=== PATIENT | female | born 1940 | race Caucasian/White ===

== ENCOUNTER 2020-03-03 04:12 | Emergency (ER) | payer MEDICARE, SELFPAY ==
--- NOTE | ~2020-03-03 | XR_ITS ---
XR chest 1V portable DATE: 03/03/2020 04:56 INDICATION: Midline chest pain for 2 hours TECHNIQUE: Portable AP chest on 03/03/2020 at 0459 hours COMPARISON: 09/30/2018 PA and lateral chest FINDINGS: Heart size is within normal range. There is aortic arch calcification. No hilar or mediasti nal enlargement. No pulmonary infiltrate or consolidation, pleural effusion or pulmonary vascular congestion or pneumo thorax. Surgical clips, right upper quadrant, consistent with cholecystectomy. Old healed right rib fractures. Diffuse osteopenia. There is mild levoscoliosis and degenerative spurring of the thoracic spine. IMPRESSION: No active cardiopulmonary disease Aortic atherosclerosis Reviewed, dictated and finalized at location A. ASSEMBLER
[2020-03-03 04:17] VITALS: BP 148/84; PULSE 91; RESP 18; TEMP 36.2; O2SAT 99
--- NOTE | 2020-03-03 04:25 | ECG_ITS ---
Measurements Intervals [place] Rate: 77 P: DC: 0 QRS: -29 QRSD: 149 T: 96 QT: 387 QTc: 438 Interpretive Statements ATRIAL FIBRILLATION LEFT BUNDLE BRANCH BLOCK ABNORMAL ECG Electronically Signed On 03-03-2020 7:52:59 ALLOCATION ANALYST by Chapo Suarez D.O.
[2020-03-03 05:01] LABS: Basophils Percent Auto 0.5 % (0.2-1.2); Eosinophils Absolute Auto 0.3 K/mm3 (0-0.3); Eosinophils Percent Auto 3.4 % (0-4.4); Hematocrit 43.2 % (37.0-47.0); Hemoglobin 14.6 g/dL (12.0-15.0); Immature Granulocyte Absolute 0.04 K/mm3 (0.00-0.031); Immature Granulocyte Percent A 0.5 % (0-0.5); Lymphocytes Absolute Auto 1.68 K/mm3 (0.9-3.2); Lymphocytes Percent Auto 19.5 % (18.3-44.2); Mean Corpuscular HGB Conc 33.8 g/dl (32-36); Mean Corpuscular Volume 88.9 fl (80-100); Mean Platelet Volume 10.8 fl (7.4-10.4); Monocytes Absolute Auto 0.8 K/mm3 (0.1-0.6); Monocytes Percent Auto 8.8 % (2.6-8.5); Neutrophils Absolute Auto 5.8 K/mm3 (1.3-6.7); Neutrophils Percent Auto 67.3 % (45.5-73.1); Platelet Count Result 216 k/mm3 (150-375); Red Blood Count 4.86 M/mm3 (4.2-5.4); Red Cell Distribution Width 13.2 % (11.5-14.5); White Blood Count 8.6 K/mm3 (4.5-10.0)
[2020-03-03 05:13] LABS: INR 1.7; Prothrombin Time 20.6 Seconds (11.1-14.7)
[2020-03-03 05:15] LABS: Partial Thromboplastin Time 68.3 SECONDS (22.3-36.8)
[2020-03-03 05:16] LABS: Alanine Aminotransferase 16 U/L (4-35); Albumin Level 4.6 g/dL (3.5-5.1); Alkaline Phosphatase 67 U/L (38-126); Anion Gap 11 mmol/L (8-16); Aspartate Amino Transferase 27 U/L (14-36); Bilirubin,Total 0.7 mg/dL (0.2-1.3); Blood Urea Nitrogen 27 mg/dL (7-17); Calcium 10.5 mg/dL (8.4-10.2); Carbon Dioxide 34 mmol/L (22-30); Chloride 99 mmol/L (98-107); Estimated CRCL calculation 35 ml/min; Estimated Glomerular Filt Rate 60; Glucose 104 mg/dL (65-105); Lipase 195 U/L (23-300); Potassium 3.5 mmol/L (3.4-5.0); Sodium 144 mmol/L (137-145)
[2020-03-03 05:27] VITALS: BP 137/63; PULSE 68; RESP 17; O2SAT 96
[2020-03-03 05:28] LABS: Troponin I < 0.012 ng/mL (0.000-0.034)
--- NOTE | 2020-03-03 06:08 | ED.CHESTPAIN ---
HPI - Chest Pain General Chief Complaint: Chest Pain Stated Complaint: cp Time Seen by Provider: 03/03/20 04:33 History of Present Illness HPI narrative: Patient is a 79-year-old female presents the emergency department with chief complaint of chest pain. Patient states that this evening she was at home and started having an episode of midsternal chest discomfort. Patient states the pain was nonradiating reports felt little short of breath at that time denies diaphoresis denies radiation. Patient pain is not worsened with movement states that it gradually resolved on its own and is currently gone upon arrival to the emergency department. Patient states that she is not sure when her last stress test was. Patient reports she has history of atrial fibrillation and states that she felt like her heart was not beating any different than normal neither fast nor slow. Related Data Home Medications Medication Instructions Recorded Confirmed carvedilol 12.5 mg tablet 12.5 mg PO Q12H 09/09/19 09/09/19 furosemide 20 mg tablet 20 mg PO QAM 09/09/19 09/09/19 rivaroxaban 20 mg tablet 20 mg PO DAILY 09/09/19 09/09/19 sacubitril 24 mg-valsartan 26 mg 1 tablet PO BID 09/09/19 09/09/19 tablet gabapentin 03/03/20 Allergies Allergy/AdvReac Type Severity Reaction Status Date / Time No Known Allergies Allergy Verified 03/03/20 04:23 Review of Systems Review of Systems: Narrative: CONSTITUTIONAL: Denies fever, chills, or sweats. EYES: Denies visual changes, redness, or discharge. ENT: Denies rhinorrhea, congestion, sore throat, or otalgia. CARDIOVASCULAR: Denies chest pain, palpitations, or edema. RESPIRATORY: Denies cough or dyspnea. GASTROINTESTINAL: Denies abdominal pain, nausea, vomiting, or diarrhea. GENITOURINARY: Denies dysuria or hematuria. SKIN: Denies rash or itching. MUSCULOSKELETAL: Denies back pain, joint pain, or myalgia. NEUROLOGIC: Denies headache, numbness, or weakness. PSYCHIATRIC: Denies anxiety or depression. A 10 system review of systems was completed on the patient and is negative except for what is stated in the HPI. Nursing and ancillary documentation was reviewed. [facility] Family History Family History Father Hypertension Family history of transient ischemic attacks Mother Hypertension Family history of cardiovascular disease Carcinoma of colon Social History Social History Smoking status: Never smoker Second hand tobacco smoke exposure: No Alcohol intake: current Comments History of atrial fibrillation Exam Narrative: Exam Narrative: GENERAL: Well-appearing, well-nourished, and in no acute distress. HEAD: Normocephalic, atraumatic. EYES: PERRLA and EOMI. ENT: Nares clear, no rhinorrhea or epistaxis. Mucous membranes moist. NECK: Supple. CHEST: Clear to auscultation. No respiratory distress. HEART: irregular Regular rate and rhythm. No murmur heard. Normal peripheral pulses. ABDOMEN: Soft, nontender, nondistended, normal active bowel sounds. EXTREMITIES: Normal range of motion. No edema. SKIN: Warm, dry, no rash. NEURO: No focal deficits. Alert and oriented x3. PSYCH: Normal mood and affect. Course Course Emergency Course: EKG shows atrial fibrillation with a left bundle branch block Initial troponin was negative a 3-hour troponin has been ordered I will be signing out to the day provider as of this time. Vital Signs Vital signs: Vital Signs Temperature 36.2 C L 03/03/20 04:17 Pulse Rate 91 03/03/20 04:17 Respiratory Rate 18 03/03/20 04:17 Blood Pressure 148/84 H 03/03/20 04:17 Pulse Oximetry 99 03/03/20 04:17 Temperature 36.2 C L 03/03/20 04:17 Pulse Rate 66 03/03/20 06:34 Respiratory Rate 18 03/03/20 06:34 Blood Pressure 128/69 03/03/20 06:34 Pulse Oximetry 98 03/03/20 06:34 MDM - Chest Pain Lab Data Result di
[2020-03-03 06:34] VITALS: BP 128/69; PULSE 66; RESP 18; O2SAT 98
[2020-03-03 07:14] VITALS: PULSE 61
[2020-03-03 07:16] VITALS: BP 109/61; PULSE 61; RESP 16; O2SAT 96
[2020-03-03 08:39] LABS: Troponin I < 0.012 ng/mL (0.000-0.034)
[2020-03-03 09:11] VITALS: BP 131/70; PULSE 68; RESP 18; O2SAT 98
== END 2020-03-03 09:12 | disposition home or self-care (01) ==
PROVIDERS: Emergency Medicine; Emergency Provider Emergency Medicine; PCP Family Medicine
DX: R07.2 Precordial pain (principal); I48.91 Unspecified atrial fibrillation; Z79.01 Long term (current) use of anticoagulants
CPT/HCPCS: 36415; 71045; 80053; 83690; 84484; 85025; 85610; 85730; 93005; 99284

== ENCOUNTER 2020-08-03 09:01 | Outpatient (CLI) | payer MEDICARE, SELFPAY ==
--- NOTE | ~2020-08-03 | MM_ITS ---
EXAMINATION: MM screening [facility] BI w jacky HISTORY: Screening mammogram TECHNIQUE: Craniocaudal and mediolateral oblique 3-D tomosynthesis images were obtained and synthetic 2-D images were generated. CAD analysis was submitted and interpreted. COMPARISON: 01/25/2019 stereotactic right breast biopsy and post biopsy right mammogram; nonprolifera tive fibrocystic changes consisting of fibrosis, chronic mastoiditis and microcalcifications were rep orted; no evidence of neoplasm 01/19/2019 diagnostic right digital mammogram 01/07/2019, 10/22/2017, 08/20/2016, 08/15/2015 bilateral digital screening mammogram examinations BREAST PARENCHYMAL COMPOSITION: There are scattered areas of fibroglandular density. FINDINGS: Bilateral breast calcifications, more numerous on the right. Right biopsy marker. New rounded circumscribed approximately 7 mm mass in the upper inner right breast. Diagnostic right m ammogram and right breast ultrasound examination are recommended. Otherwise there is no evidence of suspicious mass, calcification, or architectural distortion to sugg est malignancy in either breast. There has been no other suspicious interval change. IMPRESSION: 1. New 7 mm right upper inner breast mass. 2. Diagnostic right mammogram and right breast ultrasound are recommended. BI-RADS Category 0: Incomplete: Needs additional imaging evaluation. Reviewed, dictated and finalized at location A.
== END 2020-08-03 09:02 | disposition home or self-care (01) ==
LOC: ANHIMG 09:04
PROVIDERS: PCP Family Medicine; Visit Provider Physician Assistant
DX: Z12.31 Encounter for screening mammogram for malignant neoplasm of breast (principal); R92.8 Other abnormal and inconclusive findings on diagnostic imaging of breast
CPT/HCPCS: 77063; 77067

== ENCOUNTER 2020-08-21 12:57 | Outpatient (CLI) | payer MEDICARE, SELFPAY ==
--- NOTE | ~2020-08-21 | MMUS_ITS ---
EXAMINATION: MM diagnostic mammo unilat RT, US breast RT limited HISTORY: Follow-up right breast mass TECHNIQUE: Additional 3-D tomosynthesis images of the right breast were performed and synthetic 2-D i mages were generated. CAD analysis was submitted and interpreted. High resolution Limited right breas t ultrasound was performed. COMPARISON: Comparison to multiple prior studies sequentially, with oldest reviewed study dated 01/04. BREAST PARENCHYMAL COMPOSITION: Breast composed of scattered areas of fibroglandular density. FINDINGS: MAMMOGRAPHIC FINDINGS: There is an 8 mm mass in the upper inner quadrant of the right breast, middle third. There are benign right breast calcifications. No architectural distortion is identified. ULTRASOUND: Limited right breast ultrasound: At 2:00, 3 cm from the nipple, there is a 6 mm cyst which exhibits p osterior shadowing, possibly due to layering milk of calcium. No suspicious masses are identified to suggest malignancy. IMPRESSION: 1. No evidence for malignancy in the right breast. Benign findings. 2. Routine yearly screening mammogram and regular clinical breast examination are recommended. BI-RADS Category 2: Benign finding(s). Reviewed, dictated and finalized at location A. IMPRESSION: 1. No evidence for malignancy in the right breast. Benign findings. 2. Routine yearly screening mammogram and regular clinical breast examination a re recommended. BI-RADS Category 2: Benign finding(s).
== END 2020-08-21 12:58 | disposition home or self-care (01) ==
PROVIDERS: PCP Family Medicine; Visit Provider Physician Assistant
DX: N63.12 Unspecified lump in the right breast, upper inner quadrant (principal)
CPT/HCPCS: 76642; 77065

== ENCOUNTER 2021-09-17 08:10 | Outpatient (CLI) | payer MEDICARE, SELFPAY ==
--- NOTE | ~2021-09-17 | MM_ITS ---
EXAMINATION: MM screening [facility] BI w jacky HISTORY: Screening TECHNIQUE: Craniocaudal and mediolateral oblique 3-D tomosynthesis images were obtained and synthetic 2-D images were generated. CAD analysis was submitted and interpreted. COMPARISON: Comparison to multiple prior studies sequentially, with oldest reviewed study dated 01/04. BREAST PARENCHYMAL COMPOSITION: Breast composed of scattered areas of fibroglandular density FINDINGS: Slightly decreased size of the mass in the upper inner quadrant of the right breast compare d with prior study. There are in numerable right breast calcifications which are unchanged. There is no evidence of suspicious mass, calcification, or architectural distortion to suggest malignancy in e ither breast. There has been no suspicious interval change. IMPRESSION: 1. No mammographic evidence of malignancy. 2. Recommend routine screening mammography in one year. BI-RADS Category 2: Benign finding(s). Reviewed, dictated and finalized at location A.
== END 2021-09-17 08:11 | disposition home or self-care (01) ==
PROVIDERS: PCP Family Medicine; Visit Provider Family Medicine
DX: Z12.31 Encounter for screening mammogram for malignant neoplasm of breast (principal)
CPT/HCPCS: 77063; 77067

== ENCOUNTER 2021-10-23 07:40 | Outpatient (CLI) | payer MEDICARE, SELFPAY ==
--- NOTE | ~2021-10-23 | DEXA_ITS ---
Bone Density Report Name: DAMON NUGENT Age: 81 Sex: Female Ethnicity: White Date of : 1940 Indication: postmenopausal; screening for osteoporosis; height loss; hysterectomy; Referring Provider: MADELIN SANDERS Study: Bone densitometry was performed. Exam Date: October 23, 2021 Accession number: [id number] Bone Density: Region BMD T-score Z-score Classification AP Spine(L1, L2) 1.295 2.9 5.4 Normal Femoral Neck (Left) 0.826 -0.2 2.2 Normal Total Hip (Left) 1.099 1.3 3.4 Normal Femoral Neck (Right) 0.837 -0.1 2.3 Normal Total Hip (Right) 1.054 0.9 3.1 Normal Total Hip Mean 1.076 1.1 3.3 Normal World Health Organization criteria for BMD impression classify patients as: Normal (T-score at or above -1.0), Osteopenia (T-score between -1.0 and -2.5), or Osteoporosis (T-score at or below -2.5). 10-year Fracture Risk: FRAX not reported because: All T-scores for Spine Total, Hip Total, Femoral Neck at or above -1.0 Clinical Information Provided by Patient: Has used the following medications: Vitamin D Has the following medical conditions: Hysterectomy Patient maximum height was 64.5 Menopause Age: 50 No regular weight bearing exercise Drinks caffeinated beverages Onset of menses at age 13 Number of children 2 Impression: The patient has normal bone mass. Discussion: LOW RISK OF FRACTURE; BONE DENSITY IS WELL ABOVE THE MINIMUM DESIRABLE LEVEL AND ABOVE AVERAGE FOR AGE AND SEX AT ALL SKELETAL SITES TESTED. This person's bone density is above expected limits for age and sex. This is rarely clinically significant, but should be pursued if there are significant musculoskeletal complaints. The patient should follow a healthful lifestyle (good nutrition with adequate calcium and vitamin D, and appropriate weight-bearing exercise). Follow-Up: Consider repeating this study in 5 years or sooner if there is some new clinical indication. Reported by: SAMRA on 10/23/2021 7:58:00 AM. Reviewed, dictated and finalized at location ACt LEAVITT
== END 2021-10-23 07:41 | disposition home or self-care (01) ==
LOC: ANHIMG 07:42
PROVIDERS: PCP Family Medicine; Visit Provider Family Medicine
DX: Z78.0 Asymptomatic menopausal state (principal)
CPT/HCPCS: 77080

== ENCOUNTER 2021-11-29 22:38 | Emergency (ER) | payer MEDICARE, SELFPAY ==
--- NOTE | ~2021-11-29 | CT_ITS ---
EXAMINATION: CT abdomen pelvis w con INDICATION: Left lower quadrant pain TECHNIQUE: Computed tomographic images of the abdomen and pelvis were obtained after the administrati on of 100 cc of Omnipaque 350 intravenous contrast. The dose-length product (DLP) was 326.15 mGy-cm. Automated exposure control and iterative reconstruction technique were employed. COMPARISON: None available FINDINGS: Minimal dependent atelectasis is present in the lung bases. The heart size is normal. There is a small sliding hiatal hernia. The liver is diffusely low in attenuation when compared with the s pleen, consistent with hepatic steatosis. The gallbladder is surgically absent. There is mild enlarge ment of the common bile duct and central intrahepatic ducts which is likely due to post cholecystecto my state. Punctate calcifications in an otherwise normal spleen likely represent healed granulomatous disease. The pancreas and adrenal glands are normal. Cysts of the kidneys measure up to 11 mm on the right. No pathologically enlarged abdominal or pelvic lymph nodes are identified. There is no free i ntraperitoneal gas or evidence of bowel obstruction. There is colonic diverticulosis. There is wall t hickening of the distal sigmoid colon with edematous stranding of the adjacent perisigmoid fat. There is a small amount of ascites in the pelvis without identifiable abscess. There is severe lumbar spon dylosis. IMPRESSION: 1. Acute, uncomplicated sigmoid diverticulitis. Reviewed, dictated and finalized at location A.
[2021-11-29 23:08] VITALS: BP 141/70; PULSE 72; RESP 20; TEMP 37; O2SAT 98
[2021-11-30 00:44] VITALS: BP 129/55; PULSE 82; O2SAT 97
[2021-11-30 00:51] LABS: Appearance Urine Clear (Clear); Bilirubin Urine Negative (Negative); Color Urine Yellow (Yellow); Glucose Urine UA Negative (Negative); Ketones Urine Trace mg/dL (Negative); Leukocyte Esterase Ur 2+ LEU/UL (Negative); Nitrate Urine Negative (Negative); Protein Urine 1+ mg/dL (Negative); Urobilinogen Urine 0.2 mg/dL (<2.0); pH Urine 5.5 (5.0-9.0)
[2021-11-30 01:01] LABS: Bacteria Urine Trace /hpf; Mucus Urine Rare /lpf; Squamous Epithelial Cell Urine Rare /hpf (Few); WBC Urine 51-75 /hpf
[2021-11-30 01:05] LABS: Add Urine Microscopic? YES; Blood Urine Trace (Negative)
[2021-11-30 03:23] LABS: Basophils Percent Auto 0.2 % (0.2-1.2); Eosinophils Absolute Auto 0.1 K/mm3 (0-0.3); Eosinophils Percent Auto 0.7 % (0-4.4); Hematocrit 35.9 % (37.0-47.0); Hemoglobin 12.2 g/dL (12.0-15.0); Immature Granulocyte Absolute 0.05 K/mm3 (0.00-0.031); Immature Granulocyte Percent A 0.4 % (0-0.5); Lymphocytes Absolute Auto 1.17 K/mm3 (0.9-3.2); Lymphocytes Percent Auto 9.5 % (18.3-44.2); Mean Corpuscular Hemoglobin 31.3 pg (26-34); Mean Corpuscular Volume 92.1 fl (80-100); Mean Platelet Volume 10.6 fl (7.4-10.4); Monocytes Absolute Auto 0.9 K/mm3 (0.1-0.6); Monocytes Percent Auto 7.2 % (2.6-8.5); Neutrophils Absolute Auto 10.1 K/mm3 (1.3-6.7); Platelet Count Result 191 k/mm3 (150-375); Red Cell Distribution Width 13.2 % (11.5-14.5); White Blood Count 12.3 K/mm3 (4.5-10.0)
[2021-11-30 03:30] VITALS: BP 128/72; PULSE 86; RESP 18; O2SAT 98
[2021-11-30 03:34] LABS: Alanine Aminotransferase 19 U/L (6-35); Albumin Level 4.5 g/dL (3.5-5.1); Alkaline Phosphatase 53 U/L (38-126); Anion Gap 9 mmol/L (8-16); Aspartate Amino Transferase 25 U/L (14-36); Bilirubin,Total 0.7 mg/dL (0.2-1.3); Blood Urea Nitrogen 23 mg/dL (7-17); Calcium 9.2 mg/dL (8.4-10.2); Carbon Dioxide 26 mmol/L (22-30); Chloride 100 mmol/L (98-107); Estimated CRCL calculation 28 ml/min; Estimated Glomerular Filt Rate 48; Glucose 139 mg/dL (65-110); Lipase 108 U/L (23-300); Potassium 3.5 mmol/L (3.4-5.0); Sodium 135 mmol/L (137-145)
[2021-11-30] MEDS: ONDANSETRON INJ 4 MG/2 ML VIAL IV PUSH (04:58)
[2021-11-30] MEDS: SODIUM CHLORIDE 0.9% IV 1,000 ML 999 ML IV CONT (04:58)
[2021-11-30] MEDS: MORPHINE SULFATE (*CRX) 4 MG/ML INJ IV PUSH (04:59)
--- NOTE | 2021-11-30 05:56 | ED.GENADULT ---
HPI - General Adult General Chief complaint: Abdominal Pain Stated complaint: left flank pain Time Seen by Provider: 11/30/21 04:08 History of Present Illness HPI narrative: Patient is a 31-year-old female who presents the emergency department with chief complaint of left lower quadrant abdominal pain. Patient reports that pain started around 7 PM reports its a sharp type pain reports is worse with movement and improved with rest. The patient denies fever reports several bit of nausea denies vomiting or diarrhea. Related Data Home Medications Medication Instructions Recorded Confirmed furosemide 20 mg tablet 20 mg PO QAM 09/09/19 06/24/21 rivaroxaban 20 mg tablet (Xarelto) 20 mg PO DAILY 09/09/19 06/24/21 sacubitril 24 mg-valsartan 26 mg 1 tablet PO BID 09/09/19 06/24/21 tablet (Entresto) gabapentin 300 mg capsule 300 mg PO TID 12/24/20 06/24/21 Allergies Allergy/AdvReac Type Severity Reaction Status Date / Time No Known Allergies Allergy Verified 11/29/21 23:10 Review of Systems Review of Systems: A 10 system review of systems was completed on the patient and is negative except for what is stated in the HPI. Nursing and ancillary documentation was reviewed. 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 LBBB (left bundle branch block) Memory deficit Mitral valve regurgitation Paroxysmal A-fib Uterine fibroid Surgical History Surgical History History of cholecystectomy History of ear surgery History of tympanoplasty of left ear Family History Family History Father Hypertension Family history of transient ischemic attacks Mother Hypertension Family history of cardiovascular disease Carcinoma of colon Social History Social History Smoking status: Never smoker Second hand tobacco smoke exposure: No Alcohol intake: current Substance use: never Substance use type: does not use Gender identity (if verbalized by the patient): Female Exam Narrative: GENERAL: Well-appearing, well-nourished, and in no acute distress. HEAD: Normocephalic, atraumatic. EYES: PERRLA and EOMI. ENT: Nares clear, no rhinorrhea or epistaxis. Mucous membranes moist. NECK: Supple. CHEST: Clear to auscultation. No respiratory distress. HEART: Regular rate and rhythm. No murmur heard. Normal peripheral pulses. ABDOMEN: Soft, tenderness to palpation of the left lower quadrant, nondistended, normal active bowel sounds. EXTREMITIES: Normal range of motion. No edema. SKIN: Warm, dry, no rash. NEURO: No focal deficits. Alert and oriented x3. PSYCH: Normal mood and affect. Course Course Emergency Course: CT scan showed evidence of acute diverticulitis without perforation or abscess. Was discussed with the patient inpatient versus outpatient therapy the patient would like outpatient management. Vital Signs Vital signs: Vital Signs Temperature 37.0 C 11/29/21 23:08 Pulse Rate 72 11/29/21 23:08 Respiratory Rate 20 11/29/21 23:08 Blood Pressure 141/70 H 11/29/21 23:08 Pulse Oximetry 98 11/29/21 23:08 Oxygen Delivery Room Air 11/29/21 23:08 Temperature 37.0 C 11/29/21 23:08 Pulse Rate 96 11/30/21 06:20 Respiratory Rate 18 11/30/21 06:20 Blood Pressure 149/78 H 11/30/21 06:20 Pulse Oximetry 98 11/30/21 06:20 Oxygen Delivery Room Air 11/29/21 23:08 Medical Decision Making Vital Signs Vital Signs: Vital Signs Temperature 37.0 C 11/29/21 23:08 Pulse Rate 72 11/29/21 23:08 Respiratory R
[2021-11-30 06:20] VITALS: BP 149/78; PULSE 96; RESP 18; O2SAT 98
[2021-11-30] MEDS: metroNIDAZOLE 250 MG TABLET 500 MG PO (06:41)
[2021-11-30] MEDS: CIPROFLOXACIN 500 MG TAB PO (06:42)
== END 2021-11-30 06:51 | disposition home or self-care (01) ==
PROVIDERS: Emergency Provider Emergency Medicine; PCP Family Medicine
DX: K57.32 Diverticulitis of large intestine without perforation or abscess without bleeding (principal); I48.0 Paroxysmal atrial fibrillation; E78.5 Hyperlipidemia, unspecified; I10 Essential (primary) hypertension; K21.9 Gastro-esophageal reflux disease without esophagitis; I34.0 Nonrheumatic mitral (valve) insufficiency; Z86.73 Personal history of transient ischemic attack (TIA), and cerebral infarction without residual deficits; Z79.01 Long term (current) use of anticoagulants
CPT/HCPCS: 36415; 74177; 80053; 81001; 83690; 85025; 87086; 96361; 96374; 96375; 99284; A9270; J2270; J2405; J7030; Q9967

== ENCOUNTER 2022-03-11 00:58 | Day surgery (SDC) | payer MEDICARE, SELFPAY ==
[2022-03-03 12:50] VITALS: BMI 23.6
--- NOTE | 2022-03-11 08:02 | WPDANESEPPF ---
Anes - Initial Pre Proc Eval Procedure: Operation Date: 03/11/22 10:15 Proposed Procedures p Colonoscopy - Mayur Julien MD Date/Time: 03/11/22 08:02 Surgeon: Mayur Julien MD Pre Op Diagnosis: diverticulitis Patient Data Age: 81 Gender: F Height: 1.57 m Weight: 58.5 kg Allergies Allergy/AdvReac Type Severity Reaction Status Date / Time No Known Allergies Allergy Verified 03/11/22 09:08 Home Medications Medication Instructions Recorded Confirmed Type furosemide 20 mg tablet 20 mg PO QAM 09/09/19 03/03/22 History rivaroxaban 20 mg tablet (Xarelto) 20 mg PO DAILY 09/09/19 03/11/22 History sacubitril 24 mg-valsartan 26 mg 1 tablet PO BID 09/09/19 03/03/22 History tablet (Entresto) bimatoprost 0.01 % eye drops 1 drp EACH EYE DAILY #5 mL 12/24/20 03/03/22 Rx ([facility]) carvedilol 6.25 mg tablet (Coreg) 6.25 mg PO Q12H #60 tabs 12/24/20 03/03/22 Rx digoxin 250 mcg (0.25 mg) tablet 250 mcg PO DAILY #30 tabs 12/24/20 03/03/22 Rx gabapentin 300 mg capsule 300 mg PO TID 12/24/20 03/03/22 History ipratropium bromide 42 mcg (0.06 2 spray intranasal TID #15 mL 06/24/21 03/03/22 Rx %) nasal spray fenofibrate 54 mg tablet 54 mg PO DAILY #30 tabs 12/17/21 03/03/22 Rx sodium,potassium,mag sulfates 17.5 See Rx Instructions PO .COMPLEX 01/30/22 03/03/22 Rx gram-3.13 gram-1.6 gram oral soln #354 mL (Suprep Bowel Prep Kit) Patient hx anesthesia problems: none Family hx anesthesia problems: none Results Review: All pre-operative results and documents have been reviewed as part of the pre-operative evaluation. 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 LBBB (left bundle branch block) Memory deficit Mitral valve regurgitation Paroxysmal A-fib Uterine fibroid Surgical History Surgical History (Updated 03/11/22 @ 08:03 by Jabari Monteiro DO) History of cholecystectomy History of ear surgery History of hysterectomy History of tympanoplasty of left ear Family History Family History Father Hypertension Family history of transient ischemic attacks Mother Hypertension Family history of cardiovascular disease Carcinoma of colon Social History Social History Smoking status: Never smoker Second hand tobacco smoke exposure: No Alcohol intake: current Substance use: never Substance use type: does not use Living arrangements: with family Gender identity (if verbalized by the patient): Female Spiritual care concerns: No Anes - Eval Final PreProcedure Day of Procedure 03/11/22 08:02 Patient weight: normal Heart: regular rate and rhythm Lungs: clear to auscultation and normal air movement Airway: Mallampati scale class II Neurological: alert and oriented Last oral intake: >/= 8 hours ASA classification: III Emergent: no Anesthetic plan: proceed Anesthesia type and monitoring: general GIVS and standard monitoring Results Review: All pre-operative results and documents have been reviewed as part of the pre-operative evaluation. Informed Consent: The patient's anesthetic plan and its attendant risks and benefits were discussed with the patient/family/POA. Questions were solicited and answers provided to the satisfaction of the patient/family/POA.
[2022-03-11 09:10] VITALS: BP 139/79; PULSE 96; RESP 18; TEMP 36.1; O2SAT 100
[2022-03-11] MEDS: LACTATED RINGERS 1,000 ML 150 ML IV CONT (09:21)
--- NOTE | 2022-03-11 09:24 | PM.HPGS ---
History of Present Illness History of Present Illness Consent: Risks, benefits, and alternatives have been discussed and questions answered. Patient agrees to proceed with procedure. Chief complaint: diverticulitis Narrative: Mona Jerez is a 81 year old female Presents for screening colonoscopy. Patient presents after recent bout of diverticulitis. Previous left lower quadrant abdominal pain is now resolved. Patient also desires neoplasia screening colonoscopy family history is significant for colon cancer in her father. She has a history of adenomatous colon polyp removed on previous colonoscopy 2018. Patient reports her current weight appetite bowel movements are normal. Review of Systems Review of Systems: Review of systems noncontributory. [facility] Past Medical History Medical History (Updated 03/11/22 @ 09:25 by Mayur Julien MD) Abnormal mammogram of right breast (~2019) Chronic atrial fibrillation Decreased hearing of both ears Dyslipidemia Essential hypertension GERD without esophagitis Hearing loss History of embolic stroke without residual deficits LBBB (left bundle branch block) Memory deficit Mitral valve regurgitation Paroxysmal A-fib Uterine fibroid Surgical History Surgical History (Updated 03/11/22 @ 08:03 by Jabari Monteiro DO) History of cholecystectomy History of ear surgery History of hysterectomy History of tympanoplasty of left ear Family History Family History Father Hypertension Family history of transient ischemic attacks Mother Hypertension Family history of cardiovascular disease Carcinoma of colon Social History Social History Smoking status: Never smoker Second hand tobacco smoke exposure: No Alcohol intake: current Substance use: never Substance use type: does not use Living arrangements: with family Gender identity (if verbalized by the patient): Female Spiritual care concerns: No Meds Home Medications and Allergies Home Medications Medication Instructions Recorded Confirmed Type furosemide 20 mg tablet 20 mg PO QAM 09/09/19 03/03/22 History rivaroxaban 20 mg tablet (Xarelto) 20 mg PO DAILY 09/09/19 03/11/22 History sacubitril 24 mg-valsartan 26 mg 1 tablet PO BID 09/09/19 03/03/22 History tablet (Entresto) bimatoprost 0.01 % eye drops 1 drp EACH EYE DAILY #5 mL 12/24/20 03/03/22 Rx (Lumigan) carvedilol 6.25 mg tablet (Coreg) 6.25 mg PO Q12H #60 tabs 12/24/20 03/03/22 Rx digoxin 250 mcg (0.25 mg) tablet 250 mcg PO DAILY #30 tabs 12/24/20 03/03/22 Rx gabapentin 300 mg capsule 300 mg PO TID 12/24/20 03/03/22 History ipratropium bromide 42 mcg (0.06 2 spray intranasal TID #15 mL 06/24/21 03/03/22 Rx %) nasal spray fenofibrate 54 mg tablet 54 mg PO DAILY #30 tabs 12/17/21 03/03/22 Rx sodium,potassium,mag sulfates 17.5 See Rx Instructions PO .COMPLEX 01/30/22 03/03/22 Rx gram-3.13 gram-1.6 gram oral soln #354 mL (Suprep Bowel Prep Kit) Allergies Allergy/AdvReac Type Severity Reaction Status Date / Time No Known Allergies Allergy Verified 03/11/22 09:08 Vital Signs Vital Signs - 24 hr 03/11/22 09:10 Temperature 97 F L Pulse Rate 96 Respiratory Rate 18 Blood Pressure 139/79 Pulse Oximetry 100 Oxygen Delivery Room Air Exam Narrative: Physical exam reveals patient to be alert. Vital signs stable. HEENT exam is unremarkable. Patient is anicteric. Lungs are clear to auscultation and percussion. Heart is without murmur or extra sounds. Abdomen bowel sounds are present soft nontender with no organomegaly. Digital external rectal exam is normal. Assessment and Plan Assessment and plan (1) Family history of colon cancer in mother: Code(s): Z80.0 - Family history of malignant neoplasm of digestive organs Status: Acute Assessment and Plan: Patient has
[2022-03-11 10:36] VITALS: BP 137/81; PULSE 101; RESP 22; O2SAT 100
[2022-03-11 10:46] VITALS: BP 145/85; PULSE 98; RESP 24; O2SAT 100
[2022-03-11 10:56] VITALS: BP 125/82; PULSE 54; RESP 18; O2SAT 100
== END 2022-03-11 11:03 | disposition home or self-care (01) ==
PROVIDERS: PCP Family Medicine; Visit Provider Internal Medicine Gastroenterology
PROC: 0DJD8ZZ Inspection of Lower Intestinal Tract, Via Natural or Artificial Opening Endoscopic (ICD-10-PCS; CPT 45378; principal; 2022-03-11 10:15)
DX: Z12.11 Encounter for screening for malignant neoplasm of colon (principal); K62.1 Rectal polyp; K64.8 Other hemorrhoids; K57.30 Diverticulosis of large intestine without perforation or abscess without bleeding; Z83.71 Family history of colonic polyps; Z80.0 Family history of malignant neoplasm of digestive organs; Z87.19 Personal history of other diseases of the digestive system; I10 Essential (primary) hypertension; K21.9 Gastro-esophageal reflux disease without esophagitis; I48.0 Paroxysmal atrial fibrillation; I34.0 Nonrheumatic mitral (valve) insufficiency; I44.7 Left bundle-branch block, unspecified; E78.5 Hyperlipidemia, unspecified; Z86.73 Personal history of transient ischemic attack (TIA), and cerebral infarction without residual deficits; Z79.01 Long term (current) use of anticoagulants
CPT/HCPCS: 45380; 88305; J2704; J7120

== ENCOUNTER 2022-06-18 07:09 | Outpatient (CLI) | payer MEDICARE, SELFPAY ==
[2022-06-18 07:46] LABS: Appearance Urine Clear (Clear); Bilirubin Urine Negative (Negative); Blood Urine Negative (Negative); Color Urine Yellow (Yellow); Glucose Urine UA Negative (Negative); Ketones Urine Negative (Negative); Leukocyte Esterase Ur Negative LEU/UL (Negative); Nitrate Urine Negative (Negative); Protein Urine Negative (Negative); Urobilinogen Urine 0.2 mg/dL (<2.0)
[2022-06-18 07:50] LABS: Add Urine Microscopic? NO
== END 2022-06-18 07:10 | disposition home or self-care (01) ==
PROVIDERS: PCP Family Medicine; Visit Provider Family Medicine
DX: N18.30 Chronic kidney disease, stage 3 unspecified (principal)
CPT/HCPCS: 81003

== ENCOUNTER 2022-11-14 15:02 | Outpatient (CLI) | payer MEDICARE, SELFPAY ==
--- NOTE | ~2022-11-14 | MM_ITS ---
EXAMINATION: MM screening [facility] BI w jacky HISTORY: Screening TECHNIQUE: Craniocaudal and mediolateral oblique 3-D tomosynthesis images were obtained and synthetic 2-D images were generated. CAD analysis was submitted and interpreted. COMPARISON: Comparison to multiple prior studies sequentially, with oldest reviewed study dated 07/2018. BREAST PARENCHYMAL COMPOSITION: Breast composed of scattered areas of fibroglandular density FINDINGS: Stable mass upper inner quadrant of the right breast, middle third. This is previously biop sy-proven benign. There are benign bilateral breast calcifications. Additional right breast asymmetri es are unchanged from prior examinations. There is no evidence of suspicious mass, calcification, or architectural distortion to suggest malignancy in either breast. There has been no suspicious interva l change. IMPRESSION: 1. No mammographic evidence of malignancy. 2. Recommend routine screening mammography in one year. BI-RADS Category 2: Benign finding(s). Reviewed, dictated and finalized at location A.
== END 2022-11-14 15:03 | disposition home or self-care (01) ==
LOC: ANHIMG 15:04
PROVIDERS: PCP Family Medicine; Visit Provider Family Medicine
DX: Z12.31 Encounter for screening mammogram for malignant neoplasm of breast (principal)
CPT/HCPCS: 77063; 77067

== ENCOUNTER 2022-12-31 11:08 | Outpatient (CLI) | payer MEDICARE, SELFPAY ==
--- NOTE | ~2022-12-31 | XR_ITS ---
EXAMINATION: XR foot LT min 3V DATE: 12/31/2022 11:32 INDICATION: Left foot swelling TECHNIQUE: Dorsoplantar, lateral, and 2 oblique views of the left foot were obtained. COMPARISON: None. FINDINGS: Bone alignment is normal. There is no fracture. There is moderate osteoarthritis at the fir st metatarsophalangeal joint at the first tarsometatarsal joint, and in multiple interphalangeal join ts. The soft tissues are unremarkable. IMPRESSION: 1. 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 Reviewed, dictated and finalized at location F.
[2022-12-31 12:28] LABS: Basophils Percent Auto 0.6 % (0.2-1.2); Eosinophils Absolute Auto 0.3 K/mm3 (0-0.3); Eosinophils Percent Auto 4.4 % (0-4.4); Hematocrit 37.1 % (37.0-47.0); Hemoglobin 12.3 g/dL (12.0-15.0); Immature Granulocyte Absolute 0.03 K/mm3 (0.00-0.031); Immature Granulocyte Percent A 0.4 % (0-0.5); Lymphocytes Absolute Auto 1.45 K/mm3 (0.9-3.2); Lymphocytes Percent Auto 21.2 % (18.3-44.2); Mean Corpuscular HGB Conc 33.2 g/dl (32-36); Mean Corpuscular Hemoglobin 31.8 pg (26-34); Mean Corpuscular Volume 95.9 fl (80-100); Mean Platelet Volume 10.5 fl (7.4-10.4); Monocytes Absolute Auto 0.8 K/mm3 (0.1-0.6); Monocytes Percent Auto 11.2 % (2.6-8.5); Neutrophils Absolute Auto 4.3 K/mm3 (1.3-6.7); Neutrophils Percent Auto 62.2 % (45.5-73.1); Platelet Count Result 240 k/mm3 (150-375); Red Blood Count 3.87 M/mm3 (4.2-5.4); Red Cell Distribution Width 13.1 % (11.5-14.5); White Blood Count 6.9 K/mm3 (4.5-10.0)
[2022-12-31 12:31] LABS: Appearance Urine Clear (Clear); Bilirubin Urine Negative (Negative); Blood Urine Negative (Negative); Color Urine Yellow (Yellow); Glucose Urine UA Negative (Negative); Ketones Urine Negative (Negative); Leukocyte Esterase Ur Negative LEU/UL (Negative); Nitrate Urine Negative (Negative); Protein Urine Negative (Negative); Specific Grav Ur 1.012 (1.001-1.035); Urobilinogen Urine 0.2 mg/dL (<2.0); pH Urine 7.5 (5.0-9.0)
[2022-12-31 12:37] LABS: Anion Gap 10 mmol/L (8-16); Blood Urea Nitrogen 39 mg/dL (7-17); Carbon Dioxide 31 mmol/L (22-30); Chloride 100 mmol/L (98-107); Potassium 4.4 mmol/L (3.4-5.0); Sodium 141 mmol/L (137-145)
[2022-12-31 12:38] LABS: Alanine Aminotransferase 23 U/L (6-35); Albumin Level 4.9 g/dL (3.5-5.1); Alkaline Phosphatase 42 U/L (38-126); Aspartate Amino Transferase 29 U/L (14-36); Bilirubin,Total 0.7 mg/dL (0.2-1.3); Calcium 9.5 mg/dL (8.4-10.2); Cholesterol 255 mg/dL (0-200); Estimated Glomerular Filt Rate 25; Glucose 84 mg/dL (65-110); HDL Direct 45 mg/dL; Triglycerides 419 mg/dL (<150)
[2022-12-31 12:40] LABS: Add Urine Microscopic? NO
[2022-12-31 12:49] LABS: LDL Cholesterol Direct 109 mg/dL
[2022-12-31 12:51] LABS: NT Pro B Type Natriuretic Pept 6480 pg/mL (19.9-100)
[2022-12-31 12:56] LABS: Digoxin 0.5 ng/mL (0.8-2.0)
== END 2022-12-31 11:09 | disposition home or self-care (01) ==
PROVIDERS: PCP Family Medicine; Visit Provider Family Medicine
DX: E78.2 Mixed hyperlipidemia (principal); I50.9 Heart failure, unspecified; I48.0 Paroxysmal atrial fibrillation; E87.1 Hypo-osmolality and hyponatremia; R53.83 Other fatigue; M79.89 Other specified soft tissue disorders; N18.30 Chronic kidney disease, stage 3 unspecified; M19.072 Primary osteoarthritis, left ankle and foot
CPT/HCPCS: 36415; 73630; 80053; 80061; 80162; 81003; 83880; 85025

== ENCOUNTER 2023-02-10 08:51 | Emergency (ER) | payer MEDICARE, SELFPAY ==
--- NOTE | 2023-02-10 08:53 | ED.FEMALEGU ---
HPI - Female Genitourinary General Chief complaint: Urogenital-Female Stated complaint: Bladder Infection Time Seen by Provider: 02/10/23 08:53 Source: patient Mode of arrival: ambulatory Limitations: no limitations History of Present Illness HPI Narrative: Mona is an 82-year-old female patient presenting to the clinic today with complaints of a possible bladder infection. She reports her symptoms started on Thursday with burning and urgency. She reports she did have an episode of incontinence which is not normal for her. States she has never had a urinary tract infection in her life. Denies any fever, chills, body aches, back pain, or abdominal pain. Last bowel movement was yesterday and normal. Has been taking [id number] azo for her symptoms. Related Data Home Medications Medication Instructions Recorded Confirmed furosemide 20 mg tablet 20 mg PO QAM 09/09/19 02/10/23 rivaroxaban 20 mg tablet (Xarelto) 20 mg PO DAILY 09/09/19 02/10/23 sacubitril 24 mg-valsartan 26 mg 1 tablet PO BID 09/09/19 02/10/23 tablet (Entresto) Allergies Allergy/AdvReac Type Severity Reaction Status Date / Time No Known Allergies Allergy Verified 12/31/22 09:49 Review of Systems Review of Systems: Pertinent positives per HPI. Patient denies any fever, chills, rash, headache, visual changes, dizziness, cough, runny nose, sore throat, shortness of breath, chest pain, palpitations, nausea, vomiting, diarrhea, constipation, abdominal pain. 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 LBBB (left bundle branch block) Memory deficit Mitral valve regurgitation Paroxysmal A-fib Uterine fibroid Surgical History Surgical History History of cholecystectomy History of ear surgery History of hysterectomy History of tympanoplasty of left ear Family History Family History Father Hypertension Family history of transient ischemic attacks Mother Hypertension Family history of cardiovascular disease Carcinoma of colon Social History Social History Smoking status: Never smoker Second hand tobacco smoke exposure: No Alcohol intake: current Substance use: never Substance use type: does not use Lack of Transportation: No Lack of Food: Never True Current Housing: I Have Housing Concerned About Future Housing: No Difficulty Paying Gas/Electric Bills: No Difficulty Paying for Meds: No Currently Unemployed: No Difficulty w/ Childcare or Family Care: No Living arrangements: with family Occupation/Education: retired Gender identity (if verbalized by the patient): Female Sexual Orientation (if Verbalized by the Patient): Straight or Heterosexual Spiritual care concerns: No Agree to blood products: Yes Comments At the time of my signature, I reviewed and agree with the nursing past medical, surgical, social, and family history. There is no relevant family history pertinent to the patient complaint. Exam Narrative: General: Well-developed, well nourished, in no apparent distress. Head: Normocephalic, atraumatic. Cardio: Regular rate and rhythm, s1 and s2 normal, no murmur appreciated. Resp: Clear to auscultation bilaterally, no rhonchi, rales, wheezing or rubs. Abdomen: Soft, pliable, bowel sounds present in all quadrants, non-tender to palpation, no organomegly, no CVAT tenderness. Course Course Emergency Course: Portions of this record may have been created with voice recognition software. Level of Care: Express Care Visit
[2023-02-10 09:02] VITALS: BP 119/54; PULSE 75; RESP 16; TEMP 36.6; O2SAT 99
== END 2023-02-10 09:15 | disposition home or self-care (01) ==
PROVIDERS: Emergency Provider Nurse Practitioner Family; PCP Family Medicine
DX: N30.01 Acute cystitis with hematuria (principal); B96.20 Unspecified Escherichia coli [E. coli] as the cause of diseases classified elsewhere; I48.20 Chronic atrial fibrillation, unspecified; E78.5 Hyperlipidemia, unspecified; I10 Essential (primary) hypertension; K21.9 Gastro-esophageal reflux disease without esophagitis
CPT/HCPCS: 81003; 87077; 87086; 87186; 99213; G0463

== ENCOUNTER 2023-07-07 08:29 | Outpatient (CLI) | payer MEDICARE, SELFPAY ==
[2023-07-07 09:29] LABS: Appearance Urine Clear (Clear); Bilirubin Urine Negative (Negative); Blood Urine Negative (Negative); Color Urine Yellow (Yellow); Glucose Urine UA Negative (Negative); Ketones Urine Negative (Negative); Leukocyte Esterase Ur Negative LEU/UL (Negative); Nitrate Urine Negative (Negative); Protein Urine Negative (Negative); Specific Grav Ur 1.011 (1.001-1.035); Urobilinogen Urine 0.2 mg/dL (<2.0)
[2023-07-07 09:48] LABS: Alanine Aminotransferase 19 U/L (6-35); Albumin Level 4.6 g/dL (3.5-5.1); Alkaline Phosphatase 41 U/L (38-126); Anion Gap 10 mmol/L (4-12); Aspartate Amino Transferase 26 U/L (14-36); Bilirubin,Total 0.8 mg/dL (0.2-1.3); Blood Urea Nitrogen 44 mg/dL (7-17); Calcium 9.5 mg/dL (8.4-10.2); Carbon Dioxide 27 mmol/L (22-30); Chloride 104 mmol/L (98-107); Cholesterol 237 mg/dL (0-200); Estimated Glomerular Filt Rate 27; Glucose 101 mg/dL (65-110); HDL Direct 49 mg/dL; Potassium 3.9 mmol/L (3.4-5.0); Sodium 141 mmol/L (137-145); Triglycerides 266 mg/dL (<150)
[2023-07-07 09:59] LABS: LDL Cholesterol Direct 113 mg/dL
[2023-07-07 10:01] LABS: Add Urine Microscopic? NO
[2023-07-07 10:35] LABS: Digoxin 0.6 ng/mL (0.8-2.0)
== END 2023-07-07 08:30 | disposition home or self-care (01) ==
PROVIDERS: PCP Family Medicine; Visit Provider Family Medicine
DX: I48.91 Unspecified atrial fibrillation (principal); E78.2 Mixed hyperlipidemia; I48.0 Paroxysmal atrial fibrillation; N18.4 Chronic kidney disease, stage 4 (severe); R35.0 Frequency of micturition
CPT/HCPCS: 36415; 80053; 80061; 80162; 81003

== ENCOUNTER 2023-07-20 09:58 | Outpatient (CLI) | payer MEDICARE, SELFPAY ==
[2023-07-20 10:40] LABS: Hematocrit 36.8 % (37.0-47.0); Hemoglobin 12.1 g/dL (12.0-15.0); Mean Corpuscular HGB Conc 32.9 g/dl (32-36); Mean Corpuscular Hemoglobin 31.3 pg (26-34); Mean Corpuscular Volume 95.1 fl (80-100); Mean Platelet Volume 10.9 fl (7.4-10.4); Platelet Count Result 248 k/mm3 (150-375); Red Blood Count 3.87 M/mm3 (4.2-5.4); Red Cell Distribution Width 13.3 % (11.5-14.5); White Blood Count 7.5 K/mm3 (4.5-10.0)
[2023-07-20 10:43] LABS: Appearance Urine Clear (Clear); Bilirubin Urine Negative (Negative); Blood Urine Negative (Negative); Color Urine Yellow (Yellow); Glucose Urine UA Negative (Negative); Ketones Urine Negative (Negative); Leukocyte Esterase Ur Negative LEU/UL (Negative); Nitrate Urine Negative (Negative); Protein Urine Negative (Negative); Specific Grav Ur 1.009 (1.001-1.035); Urobilinogen Urine 0.2 mg/dL (<2.0)
[2023-07-20 11:00] LABS: Creatinine Urine 38.6 mg/dL; Total Protein Urine Random 13 mg/dL; Ur Ttl Prot Creatinine Ratio 0.34 mg/mg (0-0.20)
[2023-07-20 11:02] LABS: Add Urine Microscopic? NO
[2023-07-20 11:18] LABS: Parathyroid Intact 82.4 pg/mL (7.5-53.5)
[2023-07-20 11:20] LABS: Anion Gap 11 mmol/L (4-12); Blood Urea Nitrogen 54 mg/dL (7-17); Calcium 9.8 mg/dL (8.4-10.2); Carbon Dioxide 26 mmol/L (22-30); Chloride 103 mmol/L (98-107); Creatine Kinase 64 U/L (30-135); Estimated Glomerular Filt Rate 22; Glucose 86 mg/dL (65-110); Phosphorus 4.1 mg/dL (2.5-4.5); Potassium 4.5 mmol/L (3.4-5.0); Sodium 140 mmol/L (137-145)
[2023-07-20 12:02] LABS: Erythrocyte Sedimentation Rate 46 mm/hr (0-20)
[2023-07-20 23:49] LABS: Complement C3 138 mg/dL (88-165)
[2023-07-21 12:57] LABS: Kappa\\Lambda Light Chains 1.41 (0.26-1.65); Lambda Light Chain 25.2 mg/L (5.7-26.3)
[2023-07-24 14:28] LABS: Complement Total CH50 >60 U/mL (31-60)
== END 2023-07-20 09:59 | disposition home or self-care (01) ==
LOC: ANHLAB 10:03
PROVIDERS: PCP Family Medicine; Visit Provider Internal Medicine Nephrology
DX: N18.4 Chronic kidney disease, stage 4 (severe) (principal); E03.9 Hypothyroidism, unspecified; R94.6 Abnormal results of thyroid function studies
CPT/HCPCS: 36415; 80069; 81003; 82550; 82570; 83883; 83970; 84156; 85027; 85652; 86038; 86160; 86162; 86334

== ENCOUNTER 2023-07-22 09:25 | Outpatient (CLI) | payer MEDICARE, SELFPAY ==
[2023-07-23 04:57] LABS: Total Volume 24 Hour Urine 1500 ml
== END 2023-07-22 09:26 | disposition home or self-care (01) ==
PROVIDERS: PCP Family Medicine; Visit Provider Internal Medicine Nephrology
DX: N18.4 Chronic kidney disease, stage 4 (severe) (principal)
CPT/HCPCS: 81050; 84540; 86335

== ENCOUNTER 2023-08-03 07:53 | Outpatient (CLI) | payer MEDICARE, SELFPAY ==
--- NOTE | ~2023-08-03 | US_ITS ---
US renal BI 08/03/2023 08:53 Procedure: Realtime transabdominal ultrasound of the kidneys and bladder. Indication: Chronic kidney disease stage IV Comparison: No prior studies for comparison. Findings: There is mild right hydronephrosis. The right kidney measures 9.6 cm and left kidney measur es 11 cm. Bladder within normal limits. Impression: 1: Mild left hydronephrosis. Reviewed, dictated and finalized at location B. Impression: 1: Mild left hydronephrosis.
== END 2023-08-03 07:54 | disposition home or self-care (01) ==
PROVIDERS: PCP Family Medicine; Visit Provider Internal Medicine Nephrology
DX: N18.4 Chronic kidney disease, stage 4 (severe) (principal); N13.30 Unspecified hydronephrosis
CPT/HCPCS: 76775

== ENCOUNTER 2023-08-13 08:25 | Outpatient (CLI) | payer MEDICARE, SELFPAY ==
[2023-08-13 09:48] LABS: Digoxin 0.6 ng/mL (0.8-2.0)
== END 2023-08-13 08:26 | disposition home or self-care (01) ==
LOC: ANHLAB 08:27
PROVIDERS: PCP Family Medicine; Visit Provider Internal Medicine Nephrology
DX: E03.9 Hypothyroidism, unspecified (principal); R94.6 Abnormal results of thyroid function studies; N18.4 Chronic kidney disease, stage 4 (severe)
CPT/HCPCS: 36415; 80162

== ENCOUNTER 2023-09-02 11:29 | Outpatient (CLI) | payer MEDICARE, SELFPAY ==
--- NOTE | ~2023-09-02 | NM_ITS ---
EXAMINATION: ANGÉLICA hoffman renal scan DATE: 09/02/2023 13:55 INDICATION: Unspecified hydronephrosis. TECHNIQUE: 8 mCi Tc-99m MAG3 was administered IV. 40 mg furosemide was administered IV immediately a fterward. The patient was scanned in the supine position. A posterior abdominal radionuclide angiogra m was obtained. A subsequent time course of static images of the kidneys, ureters, and bladder was ob tained. COMPARISON: Ultrasound kidneys 08/03/2023, CT abdomen and pelvis 11/30/2021 FINDINGS: The posterior abdominal radionuclide angiogram and sequential static images show normal siz e, position, and morphology of the kidneys. Peak renal parenchymal uptake was 3 min in right kidney a nd 3 min in left kidney (normal peak 3-5 minutes). The relative early renal uptake was 53% on the ri ght and 47% on the left (<40% is abnormal). No abnormalities of the ureters or bladder are seen. T1/2 for clearance of activity from the right kidney and proximal collecting system was 11 minutes. T1/2 for clearance of activity from the left kidney and proximal collecting system was 10 minutes. IMPRESSION: 1. Symmetric kidney function. 2. No delay in contrast clearance from either kidney to suggest fixed obstruction. Reviewed, dictated and finalized at location A. IMPRESSION: 1. Symmetric kidney function. 2. No delay in contrast clearance from either kidney to suggest fixed obstruct ion.
== END 2023-09-02 11:30 | disposition home or self-care (01) ==
PROVIDERS: PCP Family Medicine; Visit Provider Internal Medicine Nephrology
DX: N13.30 Unspecified hydronephrosis (principal)
CPT/HCPCS: 78708; A9562; J1940

== ENCOUNTER 2023-11-10 08:59 | Outpatient (CLI) | payer MEDICARE, SELFPAY ==
[2023-11-10 09:55] LABS: Mean Corpuscular HGB Conc 33.3 g/dl (32-36); Mean Corpuscular Hemoglobin 31.1 pg (26-34); Mean Corpuscular Volume 93.3 fl (80-100); Mean Platelet Volume 10.9 fl (7.4-10.4); Platelet Count Result 212 k/mm3 (150-375); Red Blood Count 3.86 M/mm3 (4.2-5.4); Red Cell Distribution Width 13.6 % (11.5-14.5); White Blood Count 6.5 K/mm3 (4.5-10.0)
[2023-11-10 10:20] LABS: Albumin Level 4.6 g/dL (3.5-5.1); Anion Gap 11 mmol/L (4-12); Blood Urea Nitrogen 27 mg/dL (7-17); Calcium 8.9 mg/dL (8.4-10.2); Carbon Dioxide 29 mmol/L (22-30); Chloride 102 mmol/L (98-107); Estimated Glomerular Filt Rate 36; Glucose 107 mg/dL (65-110); Phosphorus 3.6 mg/dL (2.5-4.5); Potassium 4.2 mmol/L (3.4-5.0); Sodium 142 mmol/L (137-145)
[2023-11-10 10:31] LABS: Parathyroid Intact 165.8 pg/mL (7.5-53.5)
[2023-11-10 11:45] LABS: Creatinine Urine 138.4 mg/dL; Total Protein Urine Random 11 mg/dL; Ur Ttl Prot Creatinine Ratio 0.08 mg/mg (0-0.20)
== END 2023-11-10 09:00 | disposition home or self-care (01) ==
LOC: ANHLAB 09:09
PROVIDERS: PCP Family Medicine; Visit Provider Internal Medicine Nephrology
DX: E03.9 Hypothyroidism, unspecified (principal); R94.6 Abnormal results of thyroid function studies; N18.4 Chronic kidney disease, stage 4 (severe)
CPT/HCPCS: 36415; 80069; 82570; 83970; 84156; 85027

== ENCOUNTER 2024-03-08 11:01 | Outpatient (CLI) | payer MEDICARE, SELFPAY ==
[2024-03-08 11:43] LABS: Hematocrit 34.6 % (37.0-47.0); Hemoglobin 11.8 g/dL (12.0-15.0); Mean Corpuscular HGB Conc 34.1 g/dl (32-36); Mean Corpuscular Hemoglobin 31.6 pg (26-34); Mean Corpuscular Volume 92.8 fl (80-100); Mean Platelet Volume 9.8 fl (7.4-10.4); Platelet Count Result 234 k/mm3 (150-375); Red Blood Count 3.73 M/mm3 (4.2-5.4); Red Cell Distribution Width 15.1 % (11.5-14.5); White Blood Count 6.3 K/mm3 (4.5-10.0)
[2024-03-08 11:46] LABS: Creatinine Urine 158.1 mg/dL; Total Protein Urine Random 14 mg/dL; Ur Ttl Prot Creatinine Ratio 0.09 mg/mg (0-0.20)
[2024-03-08 11:55] LABS: Albumin Level 4.7 g/dL (3.5-5.1); Anion Gap 6 mmol/L (4-12); Blood Urea Nitrogen 29 mg/dL (7-17); Calcium 9.3 mg/dL (8.4-10.2); Carbon Dioxide 29 mmol/L (22-30); Chloride 105 mmol/L (98-107); Estimated Glomerular Filt Rate 39; Glucose 88 mg/dL (65-110); Phosphorus 3.3 mg/dL (2.5-4.5); Potassium 3.6 mmol/L (3.4-5.0); Sodium 140 mmol/L (137-145)
[2024-03-08 12:07] LABS: Parathyroid Intact 86.5 pg/mL (14.5-75.2)
[2024-03-08 12:11] LABS: Vitamin D 25 Hydroxy 52.2 ng/mL
== END 2024-03-08 11:02 | disposition home or self-care (01) ==
PROVIDERS: PCP Family Medicine; Visit Provider Internal Medicine Nephrology
DX: N18.4 Chronic kidney disease, stage 4 (severe) (principal); E21.1 Secondary hyperparathyroidism, not elsewhere classified
CPT/HCPCS: 36415; 80069; 82306; 82570; 83970; 84156; 85027

== ENCOUNTER 2024-07-21 15:34 | Emergency (ER) | payer MEDICARE, SELFPAY ==
[2024-07-21 15:44] VITALS: BP 146/75; PULSE 88; RESP 16; TEMP 36.6; O2SAT 100
[2024-07-21] MEDS: PHENYLEPHRINE 1% NA SPR (*BKC) 15 ML BTL 1 SPRAY NASAL (16:01)
--- NOTE | 2024-07-21 16:04 | ED.EPISTAXIS ---
HPI - Epistaxis General Chief complaint: Epistaxis Stated complaint: Nose Bleed Time Seen by Provider: 07/21/24 15:35 Source: patient and RN notes reviewed Mode of arrival: ambulatory Limitations: no limitations History of Present Illness HPI Narrative: Patient presents today complaining of right-sided epistaxis for several hours. She has tried pressure and packing with Kleenex without improvement. Patient has been on Xarelto chronically for history of stroke and AFib. Related Data Home Medications ?Medication ?Instructions ?Recorded ?Confirmed ?Last Taken ?Type rivaroxaban 20 mg tablet (Xarelto) 20 mg PO DAILY 09/09/19 07/21/24 03/08/22 History sacubitril 24 mg-valsartan 26 mg 1 tablet PO BID 09/09/19 07/21/24 Unknown History tablet (Entresto) triamcinolone acetonide 0.1 % 1 applic topical DAILY 07/02/23 07/21/24 Unknown History topical ointment vit C 250 mg-vit E 90 mg-zinc 40 1 tablet PO BID 07/02/23 07/21/24 Unknown History mg-copper 1 tn-bfsang-scabnd capsule (PreserVision AREDS-2) furosemide 40 mg tablet 40 mg PO QAM 07/20/23 07/21/24 Unknown History lumigan 07/21/24 Unknown History montelukast 10 mg tablet 10 mg PO QPM 07/21/24 07/21/24 Unknown History Allergies Allergy/AdvReac Type Severity Reaction Status Date / Time No Known Allergies Allergy Verified 07/21/24 15:49 Review of Systems Review of Systems: CONSTITUTIONAL: Denies body aches, fever, chills, or sweats. EYES: Denies visual changes, redness, or discharge. ENT: Denies rhinorrhea, congestion, sore throat, or otalgia.+ epistaxis CARDIOVASCULAR: Denies chest pain, palpitations, or edema. RESPIRATORY: Denies cough or dyspnea. GASTROINTESTINAL: Denies abdominal pain, nausea, vomiting, or diarrhea. GENITOURINARY: Denies dysuria or hematuria. SKIN: Denies rash, itching, or wounds. MUSCULOSKELETAL: Denies back pain, joint pain, or myalgia. NEUROLOGIC: Denies headache, numbness, tingling, or weakness. PSYCH: Denies depression or anxiety. [facility] Past Medical History Medical History Paroxysmal A-fib LBBB (left bundle branch block) Mitral valve regurgitation Abnormal mammogram of right breast (~2018) Memory deficit Uterine fibroid Hearing loss Chronic atrial fibrillation History of embolic stroke without residual deficits Decreased hearing of both ears Essential hypertension GERD without esophagitis Dyslipidemia Surgical History Surgical History History of hysterectomy History of cholecystectomy History of ear surgery History of tympanoplasty of left ear Family History Family History Father Hypertension Family history of transient ischemic attacks Mother Hypertension Family history of cardiovascular disease Carcinoma of colon Social History Social History Smoking status: Never smoker Second hand tobacco smoke exposure: No Alcohol intake: current Substance use: never Substance use type: does not use Do You Feel Safe in your Home?: Yes Lack of Transportation: No Lack of Food: Never True Current Housing: I Have Housing Concerned About Future Housing: No Difficulty Paying Gas/Electric Bills: No Difficulty Paying for Meds: No Currently Unemployed: No Education: Associate Degree Difficulty w/ Childcare or Family Care: No Living arrangements: with family Occupation/Education: retired Gender identity (if verbalized by the patient): Female Sexual Orientation (if Verbalized by the Patient): Straight or Heterosexual Spiritual care concerns: No Agree to blood products: Yes Comments At time of signature, I have reviewed and agree with nursing past medical, surgical, social and family history unless otherwise noted. Please see nursing chart for further information. There is no relevant family history pertinent to the presenting complaint Exam Narrative: GENERAL: Well-appearing, well-nourished, and in no acute distress. HEAD: Normocephalic, atraumatic. EYES: EOMI. No redness or drainage. Conjunctivae normal. ENT: Mucous membranes pink and moist. Left nare normal. Right nare: Small amount of bright red blood at the septum, otherwise clear. No active bleeding currently. Turbinates normal. Throat normal. NECK: Normal AROM. CHEST: No respiratory distress. EXTREMITIES: Normal range of motion. No edema. SKIN: Warm, dry, no rash. Capillary refill normal. Normal skin turgor. NEURO: No focal deficits. Alert and oriented x3. Gait steady. PSYCH: Normal affect. No signs of depression or anxiety. Course Course Emergency Course: Kleenex packing was removed right nostril. After approximately 5 minutes, few drops of blood have started to actively fall. Two sprays of Scottie-Synephrine nasal spray have been applied as well as a nasal clip. Will reassess and 15 minutes. 1626- Nasal clip removed. Small clot formed. Patient continues to have blood tinged nasal secretions. Will replace clip for another 10-15 mins to see if we can achieve more hemostasis. 1640- Nasal clip removed and nare examined. Bleeding has increased from last check. Anterior source has not been identified. Likely posterior. Discussed that next step would be rapid rhino. Patient declines after discussion. Replaced nasal clip. Level of Care: Express Care Visit Vital Signs Vital signs: Vital Signs Temperature 98 F 07/21/24 15:44 Pulse Rate 88 07/21/24 15:44 Respiratory Rate 16 07/21/24 15:44 Blood Pressure 146/75 H 07/21/24 15:44 Pulse Oximetry 100 07/21/24 15:44 Temperature 98 F 07/21/24 15:44 Pulse Rate 88 07/21/24 15:44 Respiratory Rate 16 07/21/24 15:44 Blood Pressure 146/75 H 07/21/24 15:44 Pulse Oximetry 100 07/21/24 15:44 Reviewed MDM - Epistaxis MDM Narrative Medical decision making narrative: Patient has declined a rapid rhino at this time to achieve hemostasis. She would like to try continued use of nasal clip. Discussed with patient that if symptoms worsen or do not resolve by morning, she needs to go to the emergency room for further evaluation and treatment. Patient agrees with plan. Anticipatory guidance given. Differential Diagnosis Differential diagnosis: Likely anterior epistaxis and posterior epistaxis Critical Care Time Critical Care Time Critical Care Time: No Discharge Plan Discharge Clinical Impression: Epistaxis Patient Disposition: Home Condition: Stable Instructions: Nosebleed (ED) Additional Instructions: Continue the nasal clip to help with your nosebleed. If you decide that you are bleeding excessively, please go to the ER for further treatment. You may want to discontinue your ipratropium nasal spray for period of time, as this is likely drying out your nose and contributing to your nose bleeds. Your blood pressure was elevated above 120/80 today at Urgent Care. This puts you above the threshold for follow up. Please schedule a followup visit with your personal physician as soon as possible, for further evaluation and treatment. Even blood pressure exceeding 120/80 may indicate pre-hypertension. Patient Language: Amharic Prescriptions: No Action montelukast 10 mg tablet 10 mg PO QPM lumigan Xarelto 20 mg tablet 20 mg PO DAILY Rx Instructions: must administer with evening meal Entresto 24-26 mg tablet 1 tablet PO BID carvedilol [Coreg] 6.25 mg tablet 6.25 mg PO Q12H Qty: 60 0RF Rx Instructions: must administer with a meal/food digoxin 250 mcg (0.25 mg) tablet 250 mcg PO DAILY Qty: 30 0RF PreserVision AREDS-2 250-90-40-1 mg capsule 1 tablet PO BID triamcinolone acetonide 0.1 % ointment 1 applic topical DAILY furosemide 40 mg tablet 40 mg PO QAM ipratropium bromide 42 mcg (0.06 %) spray,non-aerosol See Rx Instructions .ROUTE .COMPLEX Qty: 90 0RF Dose Instruction: USE 2 SPRAYS IN EACH NOSTRIL THREE TIMES DAILY Rx Instructions: USE 2 SPRAYS IN EACH NOSTRIL THREE TIMES DAILY gabapentin 300 mg capsule 300 mg PO TID Qty: 270 1RF atorvastatin 20 mg tablet See Rx Instructions .ROUTE .COMPLEX Qty: 30 12RF Dose Instruction: TAKE 1 TABLET BY MOUTH DAILY Rx Instructions: TAKE 1 TABLET BY MOUTH DAILY Follow-up/Referrals: PHYSICIAN,RESAW MACHINE OPERATOR [Primary Care Provider] - Time of Disposition: 16:48
--- NOTE | 2024-07-21 16:12 | PC.NURSE ---
1601 Provider used nasal spray on patient at this time.
--- NOTE | 2024-07-21 16:13 | PC.NURSE ---
1605 Nasal clamp applied by provider.
== END 2024-07-21 16:53 | disposition home or self-care (01) ==
PROVIDERS: Emergency Provider Nurse Practitioner
DX: R04.0 Epistaxis (principal); I48.0 Paroxysmal atrial fibrillation; I10 Essential (primary) hypertension; E78.5 Hyperlipidemia, unspecified; Z79.01 Long term (current) use of anticoagulants; Z79.899 Other long term (current) drug therapy; Z86.73 Personal history of transient ischemic attack (TIA), and cerebral infarction without residual deficits
CPT/HCPCS: 99213; A9270; G0463

== ENCOUNTER 2024-07-21 19:06 | Emergency (ER) | payer MEDICARE, SELFPAY ==
--- OUTSIDE RECORDS SUMMARY | 2024-07-21 19:07 | XMS_ITS | Referral Summary ---
Author Organization [facility] [address] Address [address] [place] [address] Care Team Providers Care Rn Discharge Name Role Phone Perez Vanessa MD Unavailable Abel Ramirez MD PhD Unavailable + Sultana Bowden MD Primary Care Provider [phone] Martha Bernal RN Unavailable Unavaila ble Allergies No known active allergies Medications Lumigan 0.01 % ophthalmic drops INT 1 GTT IN OU QHS UTD 07/06/19 20 Active vit C/E/Zn/coppr/l utein/zeaxan (PRESERVISION AREDS-2 ORAL) Take by mouth 2 (two) times a day Active triamcinolone (KENALOG) 0.1 % ointment Apply topically 2 (two) times a day 454 g 3 12/20/19 21 Active rosuvastatin (CRESTOR) 5 mg tablet Take 1 tablet (5 mg total) by mouth daily 01/09/20 21 Active gabapentin (NEURONTIN) 300 mg capsule TAKE 1 CAPSULE(300 MG) BY MOUTH THREE TIMES DAILY 90 capsule 11 01/29/20 21 Active fenofibrate (TRICOR) 54 mg tablet Take 1 tablet (54 mg total) by mouth daily 09/19/19 22 Active ipratropium (ATROVENT) 42 mcg (0.06 %) nasal spray Administer 2 sprays into each nostril 3 (three) times a day 11/30/19 23 Active furosemide (LASIX) 40 mg tablet TAKE 1 TABLET BY MOUTH ONCE DAILY. MAY ALSO TAKE 1 TABLET BY MOUTH DAILY NEEDED FOR WEIGHT GAIN OR EDEMA. 180 tablet 3 11/09/19 24 Active montelukast (SINGULAIR) 10 mg tablet Take 1 tablet (10 mg total) by mouth daily 01/16/20 24 Active rivaroxaban (Xarelto) 20 mg tablet TAKE 1 TABLET(20 MG) BY MOUTH DAILY 90 tablet 2 03/31/20 24 Active sacubitriL-herve sartan (Entresto) 24-26 mg tablet TAKE 1 TABLET BY MOUTH TWICE DAILY 180 tablet 2 03/31/20 24 Active carvediloL (COREG) 6.25 mg tablet TAKE 1 TABLET(6.25 MG) BY MOUTH TWICE DAILY WITH MEALS 180 tablet 1 06/28/19 25 Active digoxin (LANOXIN) 250 mcg (0.25 mg) tablet TAKE 1 TABLET(250 MCG) BY MOUTH DAILY 90 tablet 06/29/19 25 Active digoxin (LANOXIN) 250 mcg (0.25 mg) tablet TAKE 1 TABLET(250 MCG) BY MOUTH DAILY 90 tablet 1 01/18/20 24 025 Discontinued carvediloL (COREG) 6.25 mg tablet TAKE 1 TABLET(6.25 MG) BY MOUTH TWICE DAILY WITH MEALS 180 tablet 1 01/18/20 24 025 Discontinued Active Problems Problem Noted Date Diagnosed Date Chronic combined systolic and diastolic heart fa ilure 11/22/2018 Essential hypertension 10/18/2018 Hyperlipidemia 10/18/2018 Heart murmur 10/18/2018 Non-rheumatic mitral regurgitation 08/24/2018 Persistent atrial fibrillation 08/06/2017 LBBB (left bundle branch block) 11/04/2016 Social History Tobacco Use Types Packs/Day Years Used Date Smoking Tobacco: Never Smokeless Tobacco: Never Tobacco Cessation:Counseling Given: Not Answered Alcohol Use Standard Drinks/Week Comments No 0 (1 standard drink = 0.6 oz pur e alcohol) Personal Safety Answer Date Recorded Getting School Help Needed Not on file 03/30 Comments Unknown Sex and Gender Information Value Date Recorded Sex Assigned at Not on file 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 Gender Identity Not on file Sexual Orientation Not on file Last Filed Vital Signs Vital Sign Reading Time Taken Comments Blood Pressure 141/74 02/03/2024 8:10 AM CDT Pulse 57 02/03/2024 8:10 AM CDT Temperature 36.4 C (97.6 F) 08/08/2020 8:25 AM CDT Respiratory Rate 16 08/06/2017 1:49 PM CDT Oxygen Saturation 100% 02/03/2024 8:10 AM CDT Inhaled Oxygen Concentration - - Weight 60.6 kg (133 lb 9.6 oz) 02/03/2024 8:10 A M CDT Height 157.5 cm (5' 2 ) 02/03/2024 8:10 AM CDT Body Mass Index 24.44 02/03/2024 8:10 AM CDT Plan of Treatment Not on file Insurance COMMERCIAL GENERIC MEDICARE MEDICARE COMMERCIAL GENERIC MEDICARE COMMERCIAL GENERIC Care Teams Rn Discharge Relationship Specialty Start Date End Date Sultana Bowden MD PCP - General Family Medicine 11/08/20 Perez Vanessa MD Consulting Physician Cardiology 09/09/18 Abel Ramirez MD PhD Cardiology 02/02/20 Martha Bernal, line maintainer section Failure Coordinator 02/12/22
--- OUTSIDE RECORDS SUMMARY | 2024-07-21 19:07 | XMS_ITS | Encounter Summary ---
Author Organization [email or web address] Address 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
--- OUTSIDE RECORDS SUMMARY | 2024-07-21 19:07 | XMS_ITS | Clinical Summary ---
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
--- OUTSIDE RECORDS SUMMARY | 2024-07-21 19:07 | XMS_ITS | Clinical Summary ---
Author Organization [facility] [address] Address [address] [place] [address] Care Team Providers Care Endoscopy Registered Nurse Name Role Phone Perez Vanessa MD Unavailable [phone] Abel Ramirez MD PhD Unavailable + Sultana Bowden MD Primary Care Provider [phone] Martha Bernal RN Unavailable Unavaila ble Allergies [...] 08/06/2017 LBBB (left bundle branch block) 11/04/2016 Surgical History Surgery Date Site/Laterality Comments CARDIOVERSION 08/18/2017 EAR SURGERY CHOLECYSTECTOMY HYSTERECTOMY Medical History Medical History Date Comments Hypertension Heart murmur Hyperlipidemia TIA (transient ischemic attack) Stroke (HCC) CHF (congestive heart failure) (HCC) Heart valve disease Atrial fibrillation (HCC) Diastolic dysfunction Family History Medical History Relation Name Comments Cancer Brother Kidney failure Father Heart disease Mother Kidney failure Sister Relation Name Status Comments Brother Alive Father Mother Sister Alive Social History Tobacco Use Types Packs/Day Years [...] on file 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 Gender Identity Not on file Sexual Orientation Not on file Obstetrics History Last Filed Vital Signs Vital Sign Reading [...] 02/03/2024 8:10 AM CDT Plan of Treatment Health Maintenance Due Date Last Done Comments Depression Screening 1940 Fall Risk Assessment 1940 Osteoporosis Screening-Bone Density Scan 1940 Hepatitis B Screening 1958 Zoster Vaccine (1 of 2) 1990 Well Visit 65+ 2005 DTaP/Tdap/Td Vaccine (1 - Tdap) 09/17/2016 7, 04/06/2006 Influenza Vaccine (#1) 2023 8, 01/04/2017, 12/24/2015, Additional history exists Pneumococcal vaccine 65+ Completed 018, 06/28/2014, 04/06/2013 Insurance COMMERCIAL GENERIC MEDICARE MEDICARE COMMERCIAL [facility] MEDICARE COMMERCIAL GENERIC Member Subscriber Plan / Payer (Ef fective 2015-Present) Name:Damon Jerez Member ID:[id number] Relation to Subscriber:Self Name:Damon Jerez Subscriber ID:[id number] Payer ID:[id number] Group ID:[id number] Type:COMMERCIAL Address: [address] [address] [place] [address] Care Teams Endoscopy Registered Nurse Relationship Specialty Start Date End Date Sultana Bowden MD PCP - General Family Medicine 11/08/20 Perez Vanessa MD Consulting Physician Cardiology 09/09/18 Abel Ramirez MD PhD Cardiology 02/02/20 Martha Bernal, dermatopathologist Failure Coordinator 02/12/22
--- OUTSIDE RECORDS SUMMARY | 2024-07-21 19:07 | XMS_ITS | Encounter Summary ---
Author Organization [employer] Address 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
--- OUTSIDE RECORDS SUMMARY | 2024-07-21 19:08 | XMS_ITS | Encounter Summary ---
Author Organization [facility] Address [address] [place] [address] Phone Care Team Providers Care Staff Mine Warfare Officer Name Role Phone Rosalie Hernandez MD Primary Care Provider [phone] Perez Vanessa MD Unavailable [phone] Tashia Chen RN Unavailable Abel Ramirez MD PhD Unavailable + Sultana Bowden MD Primary Care Provider [phone] Martha Bernal RN Unavailable Unavaila ble Encounter Details Date Type Department Care Team (Late st Contact Info) Description 09/01/2019 Orders Only [facility] Scanning, Provider Social History Tobacco Use Types Packs/Day Years Used Date Smoking Tobacco: Never Smokeless Tobacco: Never Alcohol Use Standard Drinks/Week Comments No 0 (1 standard drink = 0.6 oz pur e alcohol) Comments Unknown Sex and Gender Information Value Date Recorded Sex Assigned at Not on file 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 Gender Identity Not on file Sexual Orientation Not on file documented as of this encounter Plan of Treatment Not on file documented as of this encounter Procedures Procedure Name Priority Date/Time Associated Diagnosis Comments SCAN - LABS 09/01/2019 documented in this encounter Results * SCAN - LABS (09/01/2019) us Provider Scanning Final Result documented in this encounter Visit Diagnoses Not on filedocumented in this encounter Care Teams Staff Mine Warfare Officer Relationship Specialty Start Date End Date Rosalie Hernandez MD PCP - General Family Practice 12/31/17 11/07/20 Sultana Bowden MD [address] [address] PCP - General Family Medicine 11/08/20 Perez Vanessa MD Consulting Physician Cardiology 09/09/18 Tashia Chen RN [address] [address] 02/02/20 02/11/22 Abel Ramirez MD PhD [address] [address] Cardiology 02/02/20 Martha Bernal, sales assistants and salespersons Failure Coordinator 02/12/22 documented as of this encounter
--- OUTSIDE RECORDS SUMMARY | 2024-07-21 19:08 | XMS_ITS | Encounter Summary ---
Author Organization [employer] Address 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
--- OUTSIDE RECORDS SUMMARY | 2024-07-21 19:08 | XMS_ITS | Continuity of Care Document ---
Author Organization [facility] Address [address] [place] [address] Phone Care Team Providers Care Gas Furnace Installer Name Role Phone Tsai OD, Mayur Unavailable Unavailable Procedures Procedure Date Visual Field Examination-Professional Se p--2009 Visual Field Examination(s) Office/outpatient Visit, Est Optic Nerve Head Eval IPO Reduced 15% Office/outpatient Visit, Est Fundus Photography W/ Report Visual Field Examination-Professional Se p--2008 Visual Field Examination(s) Office/outpatient Visit, Est No Script Office/outpatient Visit, Est No Script Office/outpatient Visit, Est Eye Exam Established Pt Optic Nerve Head Eval Visual Field Examination(s) Eye Exam, New Patient Advance Directives Directive Yes / No Effective Date File Name No Information Encounters Encounter Description Practice Location Reason(s) For Visit Diagnoses Date Provider Providers Copied on Encounter [facility], [address], [place], [place], [id number], [place] tel:[phone] [facility] No Information 0 Tsai OD Mayur. [address], [address], [place], [address], [place]. tel:[phone] Referring Provider: Mayur Tsai OD Ayana, [address], [place], [place], [facility]. tel:[phone] [facility], [address] [place] [address] [address], [place], [place], [address], tel:[phone] [facility] No Information Dec- 4-201 0 Tsai OD Mayur. [address], [address], [place], [facility], [place]. tel:[phone] Referring Provider: Mayur Tsai OD A, [address] [place] [address] Dr [address], [place], [facility]. tel:[phone] Office/outpat ient Visit, [facility], [address] [place] [address] [address], [place], [place], [address], tel:[phone] [facility] No Information Juwan-0 2-201 0 Krishnasamy Perfecto. [address] [place] [address], [facility], [place]. tel:[phone] Office/outpat ient Visit, [facility], [address] [place] [address] [address], [place], [place], [address], tel:[phone] [facility] No Information 7-201 0 Krishnasamy Perfecto. [address] [place] [address], [facility], [place]. tel:[phone] Referring Provider: Perfecto stahl, [address] [place] [address], [place], [facility]. tel:[phone] [facility], [address] [place] [address] [address], [place], [place], [address], [place] tel:[phone] [facility] No Information Dec-2 8-200 9 Krishnasamy Perfecto. [address] [place] [address], [facility], [place]. tel:[phone] Referring Provider: Perfecto stahl, [address] [place] [address] [address], [place], [address]. tel:[phone] [facility], [address], [place], [place], [address], [place] tel:[phone] [facility] No Information Sep-2 2-200 9 Krishnasamy Perfecto. [facility] [address], [place], [facility], [place]. tel:[phone] Referring Provider: Perfecto stahl, [address] [facility] [address], [place], [facility]. tel:[phone] Office/outpat ient Visit, [facility], [address], [place], [place], [address], [place] tel:[phone] [facility] No Information Juwan-1 7-200 9 Krishnasamy Perfecto. [address] [place] [address], [place], [facility], [place]. tel:[phone] Office/outpat ient Visit, [facility], [address], [place], [place], [address], [place] tel:[phone] [facility] No Information Feb-1 1-200 9 Krishnasamy Perfecto. [address] [place] [address], [facility], [place]. tel:[phone] Office/outpat ient Visit, [facility], [address], [place], [place], [address], [place] tel:[phone] [facility] No Information Oct-0 8-200 8 Krishnasamy Perfecto. [facility] [address], [place], [facility], [place]. tel:[phone] [facility], [address], [place], [place], [address], [place] tel:[phone] [facility] No Information Sep-1 7-200 8 Krishnasamy Perfecto. [address] [place] [address], [place], [facility], . tel:[phone] [facility], [address] [place], [place] [address] [address], [place], [place], [address], tel:[phone] [facility] No Information Sep-0 3-200 8 Krishnasamy Perfecto. [address] [place] [address] [address], [place], [facility], . tel:[phone] Referring Provider: Perfecto stahl, [address] [place] [address], [place], [facility]. tel:[phone] [facility], [address] [facility] [address], [place], [place], [address], tel:[phone] [facility] No Information Aug-2 0-200 8 Krishnasamy Perfecto. [address] [place] [address], [place], [facility], . tel:[phone] Referring Provider: Mayur Piña, [address] [place], [place] [address], [place], [facility]. tel:[phone] Family History Family Member Type Diagnosis Age At Onset No Information Payers Payer name Insurance type Covered alliance party ID Authorvenancioa lima(s) [place] [id number] [facility] [id number] Social History Type Description Quantity Date Captured Comments Sex Female Smoking Status No Information Chief Complaint And Reason For Visit No Information Reason For Referral Reason For Referral No Information History Of Present Illness Encounter Date Complaint History Of Prese nt Illness No Information Functional Status Date Functional Assessmen t No Information Instructions Date Instruction Additional Infor mation No Information Assessments Type Assessment Date No Information Patient Care Teams Name Effective Dates (start - stop) Status Members No Information
--- OUTSIDE RECORDS SUMMARY | 2024-07-21 19:08 | XMS_ITS | Encounter Summary ---
Author Organization [employer] Address 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
[2024-07-21 19:10] VITALS: BP 126/79; PULSE 67; RESP 17; TEMP 36.1; O2SAT 98
--- OUTSIDE RECORDS SUMMARY | 2024-07-21 21:59 | XMS_ITS | Encounter Summary ---
Author Organization [employer] Address 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
--- OUTSIDE RECORDS SUMMARY | 2024-07-21 21:59 | XMS_ITS | Encounter Summary ---
Author Organization [employer] Address 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
--- OUTSIDE RECORDS SUMMARY | 2024-07-21 21:59 | XMS_ITS | Encounter Summary ---
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
--- OUTSIDE RECORDS SUMMARY | 2024-07-21 21:59 | XMS_ITS | Referral Summary ---
Author Organization [facility] [address] Address [address] [place] [address] Care Team Providers Care Entry Level Paralegal Name Role Phone Perez Vanessa MD Unavailable [phone] Abel Ramirez MD PhD Unavailable + Sultana Bowden MD Primary Care Provider [phone] Martha Bernal RN Unavailable Unavaila ble Allergies [...] on file Legal Sex Female 6:34 AM JUICE MIXER Gender Identity Not on file Sexual Orientation [...] COMMERCIAL GENERIC MEDICARE COMMERCIAL GENERIC Care Teams Entry Level Paralegal Relationship Specialty Start Date End Date Sultana Bowden MD PCP - General Family Medicine 11/08/20 Perez Vanessa MD Consulting Physician Cardiology 09/09/18 Abel Ramirez MD PhD Cardiology 02/02/20 Martha Bernal, bead stringer Failure Coordinator 02/12/22
--- OUTSIDE RECORDS SUMMARY | 2024-07-21 21:59 | XMS_ITS | Continuity of Care Document ---
Author Organization [facility] Address [address] [place] [address] Phone Care Team Providers Care Road Grader Name Role Phone Tsai OD, Mayur Unavailable [...] Diagnoses Date Provider Providers Copied on Encounter [facility], [address], [place], [place], [address], [place] tel:[phone] [facility] No Information 0 Tsai OD Mayur. [address], [address], [place], [address], [place]. tel:[phone] Referring Provider: Mayur Tsai OD Ayana, [address], [place], [place], [facility]. tel:[phone] [facility], [address] [place] [address] [address], [place], [place], [address], tel:[phone] [facility] No Information Dec- 4-201 0 Tsai OD Mayur. [address] [facility] [address] [facility] [address], [place], [facility], [place]. tel:[phone] Referring Provider: Mayur Tsai OD A, [address] [place] [address] Dr [address], [place], [place], [facility]. tel:[phone] Office/outpat ient Visit, [facility], [address] [place] [address] [address], [place], [place], [address], tel:[phone] [facility] No Information Juwan-0 2-201 0 Krishnasamy Perfecto. [address] [place] [address], [facility], [place]. tel:[phone] Office/outpat ient Visit, [facility], [address] [place] [address] [address], [place], [place], [address], tel:[phone] [facility] No Information 7-201 0 Krishnasamy Perfecto. [address] [place] [address], [facility], [place]. tel:[phone] Referring Provider: Perfecto stahl, [address] [place] [address], [place], [facility]. tel:[phone] [facility], [address] [place] [address] [address], [place], [place], [address], [place] tel:[phone] [facility] No Information Dec-2 8-200 9 Krishnasamy Perfecto. [address] [place] [address], [facility], [place]. tel:[phone] Referring Provider: Perfecto stahl, [address] [place] [address], [place], [address]. tel:[phone] [facility], [address], [place], [place], [address], [place] tel:[phone] [facility] No Information Sep-2 2-200 9 Krishnasamy Perfecto. [facility] [address], [place], [facility], [place]. tel:[phone] Referring Provider: Perfecto stahl, [address] [facility] [address], [place], [place], [facility]. tel:[phone] Office/outpat ient Visit, [facility], [address], [place], [place], [address], [place] tel:[phone] [facility] No Information Juwan-1 7-200 9 Krishnasamy Perfecto. [address] [place] [address], [place], [facility], [place]. tel:[phone] Office/outpat ient Visit, [facility], [address], [place], [place], [address], [place] tel:[phone] [facility] No Information Feb-1 1-200 9 Krishnasamy Perfecto. [address] [place] [address], [facility], [place]. tel:[phone] Office/outpat ient Visit, [facility], [address], [place], [place], [address], [place] tel:[phone] [facility] No Information Oct-0 8-200 8 Krishnasamy Perfecto. [facility] [address], [place], [facility], [place]. tel:[phone] [facility], [address], [place], [place], [address], [place] tel:[phone] [facility] No Information Sep-1 7-200 8 Krishnasamy Perfecto. [address] [place] [address], [place], [facility], . tel:[phone] [facility], [address] [place], [place] [address] [address], [place], [place], [address], tel:[phone] [facility] No Information Sep-0 3-200 8 Krishnasamy Perfecto. [address] [place] [address] [address], [place], [facility], . tel:[phone] Referring Provider: Perfecto stahl, [address] [place] [address], [place], [facility]. tel:[phone] [facility], [address], [place], [place], [address], tel:[phone] [facility] No Information Aug-2 0-200 8 Krishnasamy Perfecto. [address] [place] [address], [place], [facility], . tel:[phone] Referring Provider: Mayur Piña, [address] [place], [place] [address], [place], [place], [facility]. tel:[phone] Family History Family Member Type Diagnosis Age At Onset No Information Payers Payer name Insurance type Covered libertarian ID Authorvenancioa lima(s) [place] [id number] [facility] [id number] Social History Type Description Quantity Date Captured [...]
--- OUTSIDE RECORDS SUMMARY | 2024-07-21 21:59 | XMS_ITS | Clinical Summary ---
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
--- OUTSIDE RECORDS SUMMARY | 2024-07-21 21:59 | XMS_ITS | Encounter Summary ---
Author Organization [facility] Address 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
--- OUTSIDE RECORDS SUMMARY | 2024-07-21 21:59 | XMS_ITS | Clinical Summary ---
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 MEDICARE COMMERCIAL GENERIC Care Teams Circular Head Saw Operator Relationship Specialty Start Date End Date Sultana Bowden MD PCP - General Family Medicine 11/08/20 Perez Vanessa MD Consulting Physician Cardiology 09/09/18 Abel Ramirez MD PhD Cardiology 02/02/20 Martha Bernal, vmware systems administrator Failure Coordinator 02/12/22
--- OUTSIDE RECORDS SUMMARY | 2024-07-21 21:59 | XMS_ITS | Encounter Summary ---
Author Organization [employer] Address [address] [place] [address] Care Team Providers Care Distributor Advertising Material Name Role Phone Duglas Sumner MD Primary Care Provider [phone] Encounter Details Date Type Department Care Team (Late st Contact Info) Description 04/28/2006 Outpatient Historical HIS MRI DEPT David Hernán[place] [address] [facility] [address] [place] [address] Other Otorrhea (Primary Dx) Social History Tobacco Use Types Packs/Day Years Used Date Smoking Tobacco: Never Assessed Comments Unknown Sex and Gender Information Value Date Recorded Sex Assigned at Not on file Legal Sex Female 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
--- NOTE | 2024-07-21 22:35 | ED.EPISTAXIS ---
HPI - Epistaxis General Chief complaint: Epistaxis Stated complaint: nosebleed Time Seen by Provider: 07/21/24 21:19 Source: patient Mode of arrival: ambulatory Limitations: no limitations History of Present Illness HPI Narrative: Patient is an 84-year-old female who presents the ED with report of a nosebleed. Patient reports she has had intermittent nosebleeds throughout the day today, coming from bilateral nostrils. She had a similar nosebleed last week which resolved on its own. Patient is on Xarelto due to history of AFib. Denies any fall or trauma. Denies coughing up blood, dizziness, lightheadedness. Related Data Home Medications ?Medication ?Instructions ?Recorded ?Confirmed ?Last Taken ?Type rivaroxaban 20 mg tablet (Xarelto) 20 mg PO DAILY 09/09/19 07/21/24 03/08/22 History sacubitril 24 mg-valsartan 26 mg 1 tablet PO BID 09/09/19 07/21/24 Unknown History tablet (Entresto) triamcinolone acetonide 0.1 % 1 applic topical DAILY 07/02/23 07/21/24 Unknown History topical ointment vit C 250 mg-vit E 90 mg-zinc 40 1 tablet PO BID 07/02/23 07/21/24 Unknown History mg-copper 1 yn-dxbuvx-jortck capsule (PreserVision AREDS-2) furosemide 40 mg tablet 40 mg PO QAM 07/20/23 07/21/24 Unknown History lumigan 07/21/24 Unknown History montelukast 10 mg tablet 10 mg PO QPM 07/21/24 07/21/24 Unknown History Allergies Allergy/AdvReac Type Severity Reaction Status Date / Time No Known Allergies Allergy Verified 07/21/24 19:12 Review of Systems Review of Systems: All systems reviewed & are unremarkable except as noted in HPI. 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 Decreased hearing of both ears Essential hypertension GERD without esophagitis Dyslipidemia Surgical History Surgical History History of hysterectomy History of cholecystectomy History of ear surgery History of tympanoplasty of left ear Family History Family History Father Hypertension Family history of transient ischemic attacks Mother Hypertension Family history of cardiovascular disease Carcinoma of colon Social History Social History Smoking status: Never smoker Second hand tobacco smoke exposure: No Alcohol intake: current Substance use: never Substance use type: does not use Do You Feel Safe in your Home?: Yes Lack of Transportation: No Lack of Food: Never True Current Housing: I Have Housing Concerned About Future Housing: No Difficulty Paying Gas/Electric Bills: No Difficulty Paying for Meds: No Currently Unemployed: No Education: Associate Degree Difficulty w/ Childcare or Family Care: No Living arrangements: with family Occupation/Education: retired Gender identity (if verbalized by the patient): Female Sexual Orientation (if Verbalized by the Patient): Straight or Heterosexual Spiritual care concerns: No Agree to blood products: Yes Exam Narrative: GENERAL: Well appearing, well-nourished, non-toxic, in no acute distress. HEAD: Normocephalic, atraumatic. ENT: No active epistaxis. No significant blood in left nare. Dried blood/clot formation to Kiesselbach's plexus in R nare. No active bleeding. Small clot present in posterior pharynx w/o active bleeding or drainage down pharynx. RESPIRATORY: Airway patent, respirations nonlabored. CARDIOVASCULAR: Regular rate and rhythm MUSCULOSKELETAL: Moves all extremities. No gross deformities. SKIN: Warm, dry, normal color. NEURO: A&O X3. Speech clear. No focal deficits. PSYCHIATRIC: Appropriate mood and affect. Normal interaction. Course Vital Signs Vital signs: Vital Signs Temperature 97.0 F L 07/21/24 19:10 Pulse Rate 67 07/21/24 19:10 Respiratory Rate 07/21/24 19:10 Blood Pressure 126/79 07/21/24 19:10 Pulse Oximetry 98 07/21/24 19:10 Oxygen Delivery Room Air 07/21/24 19:10 Temperature 97.0 F L 07/21/24 19:10 Pulse Rate 67 07/21/24 19:10 Respiratory Rate 17 07/21/24 19:10 Blood Pressure 126/79 07/21/24 19:10 Pulse Oximetry 98 07/21/24 19:10 Oxygen Delivery Room Air 07/21/24 19:10 MDM - Epistaxis MDM Narrative Medical decision making narrative: Patient applied clamp prior to arrival. Upon my evaluation, patient has no active bleeding. Resting comfortably. Vital signs stable. Neurologically intact. Bleeding appeared to be coming from right nare along Kiesselbach plexus, clot formation present. Origin is likely anterior, with bleeding well controlled at this time. Patient stable for discharge home at this time. Recommended follow-up with ENT given recurrence of nose bleeds, discussed management and prevention of nose bleeds at home. Given reasons to return to the ED. She agrees with plan. Discharged in stable condition. Medical Records Attestation: I reviewed the patient's medical records. Discharge Plan Discharge Clinical Impression: Anterior epistaxis, Chronic anticoagulation Patient Disposition: Home Condition: Stable Instructions: Antibiotic Form, Nosebleed (ED) Additional Instructions: Follow up with ENT for further evaluation. Avoid rubbing or blowing your nose for the next few days. Recommend humidifier or placing Vaseline inside nostrils at night to avoid drying out. You may also use qgtq-lzl-sgjytot nasal spray/saline spray to nose to keep moist. If bleeding recurs, blow nose entirely, utilize Afrin to nostrils and place nasal clamp for approximately 30 minutes. Do not adjust or move the clamp for at least 30 minutes. If bleeding does still persistent after 30 minutes, replace clamp for an additional 15 minutes. If bleeding is still persistent after 1 hour, return to the ED for further evaluation. Additionally, return if you experience severe pain, weakness, passing out, significant dizziness, or any other symptoms of concern. Patient Language: Persian Prescriptions: No Action montelukast 10 mg tablet 10 mg PO QPM lumigan Xarelto 20 mg tablet 20 mg PO DAILY Rx Instructions: must administer with evening meal Entresto 24-26 mg tablet 1 tablet PO BID carvedilol [Coreg] 6.25 mg tablet 6.25 mg PO Q12H Qty: 60 0RF Rx Instructions: must administer with a meal/food digoxin 250 mcg (0.25 mg) tablet 250 mcg PO DAILY Qty: 30 0RF PreserVision AREDS-2 250-90-40-1 mg capsule 1 tablet PO BID triamcinolone acetonide 0.1 % ointment 1 applic topical DAILY furosemide 40 mg tablet 40 mg PO QAM ipratropium bromide 42 mcg (0.06 %) spray,non-aerosol See Rx Instructions .ROUTE .COMPLEX Qty: 90 0RF Dose Instruction: USE 2 SPRAYS IN EACH NOSTRIL THREE TIMES DAILY Rx Instructions: USE 2 SPRAYS IN EACH NOSTRIL THREE TIMES DAILY gabapentin 300 mg capsule 300 mg PO TID Qty: 270 1RF atorvastatin 20 mg tablet See Rx Instructions .ROUTE .COMPLEX Qty: 30 12RF Dose Instruction: TAKE 1 TABLET BY MOUTH DAILY Rx Instructions: TAKE 1 TABLET BY MOUTH DAILY Follow-up/Referrals: Sultana Bowden MD [Primary Care Provider] - Raymond Gillis MD [Physician] - (ENT) Time of Disposition: 22:39
== END 2024-07-21 22:46 | disposition home or self-care (01) ==
PROVIDERS: Emergency Provider Physician Assistant; PCP Family Medicine
DX: R04.0 Epistaxis (principal); I48.0 Paroxysmal atrial fibrillation; Z79.01 Long term (current) use of anticoagulants; I10 Essential (primary) hypertension; K21.9 Gastro-esophageal reflux disease without esophagitis; E78.49 Other hyperlipidemia
CPT/HCPCS: 99281

== ENCOUNTER 2024-09-08 09:41 | Outpatient (CLI) | payer MEDICARE, SELFPAY ==
[2024-09-08 10:14] LABS: Hematocrit 35.6 % (37.0-47.0); Hemoglobin 11.5 g/dL (12.0-15.0); Mean Corpuscular HGB Conc 32.3 g/dl (32-36); Mean Corpuscular Hemoglobin 30.3 pg (26-34); Mean Corpuscular Volume 93.7 fl (80-100); Mean Platelet Volume 10.3 fl (7.4-10.4); Platelet Count Result 227 k/mm3 (150-375); White Blood Count 7.8 K/mm3 (4.5-10.0)
--- OUTSIDE RECORDS SUMMARY | 2024-09-08 10:30 | XMS_ITS | Encounter Summary ---
Author Organization [employer] Address 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
--- OUTSIDE RECORDS SUMMARY | 2024-09-08 10:30 | XMS_ITS | Encounter Summary ---
Author Organization [employer] Address 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
--- OUTSIDE RECORDS SUMMARY | 2024-09-08 10:30 | XMS_ITS | Encounter Summary ---
Author Organization [employer] Address 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
--- OUTSIDE RECORDS SUMMARY | 2024-09-08 10:30 | XMS_ITS | Clinical Summary ---
Author Organization [facility] [address] Address [address] [place] [address] Care Team Providers Care Ropewalk Rope Maker Name Role Phone Perez Vanessa MD Unavailable [phone] Abel Ramirez MD PhD Unavailable + Sultana Bowden MD Primary Care Provider [phone] Martha Bernal RN Unavailable Unavaila ble Allergies No known active allergies Medications Lumigan 0.01 % ophthalmic drops INT 1 GTT IN OU QHS UTD 0 Active vit C/E/Zn/coppr/memo tein/zeaxan (PRESERVISION AREDS-2 ORAL) Take by mouth 2 (two) times a day Active triamcinolone (KENALOG) 0.1 % ointment Apply topically 2 (two) times a day 454 g 3 1 Active rosuvastatin (CRESTOR) 5 mg tablet Take 1 tablet (5 mg total) by mouth daily 1 Active gabapentin (NEURONTIN) 300 mg capsule TAKE 1 CAPSULE(300 MG) BY MOUTH THREE TIMES DAILY 90 capsule 11 1 Active fenofibrate (TRICOR) 54 mg tablet Take 1 tablet (54 mg total) by mouth daily 2 Active ipratropium (ATROVENT) 42 mcg (0.06 %) nasal spray Administer 2 sprays into each nostril 3 (three) times a day 3 Active furosemide (LASIX) 40 mg tablet TAKE 1 TABLET BY MOUTH ONCE DAILY. MAY ALSO TAKE 1 TABLET BY MOUTH DAILY NEEDED FOR WEIGHT GAIN OR EDEMA. 180 tablet 3 4 Active montelukast (SINGULAIR) 10 mg tablet Take 1 tablet (10 mg total) by mouth daily 4 Active rivaroxaban (Xarelto) 20 mg tablet TAKE 1 TABLET(20 MG) BY MOUTH DAILY 90 tablet 2 4 Active sacubitriL-vals antwon (Entresto) 24-26 mg tablet TAKE 1 TABLET BY MOUTH TWICE DAILY 180 tablet 2 4 Active carvediloL (COREG) 6.25 mg tablet TAKE 1 TABLET(6.25 MG) BY MOUTH TWICE DAILY WITH MEALS 180 tablet 1 5 Active digoxin (LANOXIN) 250 mcg (0.25 mg) tablet TAKE 1 TABLET(250 MCG) BY MOUTH DAILY 90 tablet 5 Active Active Problems Problem Noted Date Diagnosed Date [...] on file Legal Sex Female 6:34 AM BI LEAD Gender Identity Not on file Sexual Orientation [...] A M CDT Height 157.5 cm (5' 2) 02/03/2024 8:10 AM CDT Body Mass Index 24.44 02/03/2024 8:10 AM CDT Plan of Treatment Health Maintenance Due Date Last Done Comments Depression Screening 1940 Fall Risk Assessment 1940 Osteoporosis Screening-Bone Density Scan 1940 Hepatitis B Screening 1958 Zoster Vaccine (1 of 2) 1990 Well Visit 65+ 2005 DTaP/Tdap/Td Vaccine (1 - Tdap) 09/17/2016 7, 04/06/2006 Influenza Vaccine (Season Ended) 2024 01/04/2018, 01/04/2017, 12/24/2015, Additional history exists Pneumococcal vaccine 65+ Completed 018, 06/28/2014, 04/06/2013 Insurance COMMERCIAL GENERIC MEDICARE MEDICARE COMMERCIAL GENERIC MEDICARE COMMERCIAL GENERIC Care Teams Ropewalk Rope Maker Relationship Specialty Start Date End Date Sultana Bowden MD PCP - General Family Medicine 11/08/20 Perez Vanessa MD Consulting Physician Cardiology 09/09/18 Abel Ramirez MD PhD Cardiology 02/02/20 Martha Bernal, peat shredder tender Failure Coordinator 02/12/22
--- OUTSIDE RECORDS SUMMARY | 2024-09-08 10:30 | XMS_ITS | Encounter Summary ---
Author Organization [employer] Address 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
--- OUTSIDE RECORDS SUMMARY | 2024-09-08 10:30 | XMS_ITS | Referral Summary ---
Author Organization [facility] [address] Address [address] [place] [address] Care Team Providers Care Aircraft Power Plant Assembler Name Role Phone Perez Vanessa MD Unavailable [phone] Abel Ramirez MD PhD Unavailable + Sultana Bowden MD Primary Care Provider [phone] Martha Bernal RN Unavailable Unavaila ble Allergies [...] on file Legal Sex Female 6:34 AM FIELD SERVICES ANALYST Gender Identity Not on file Sexual Orientation [...] MEDICARE MEDICARE COMMERCIAL GENERIC MEDICARE COMMERCIAL GENERIC Member Subscriber Plan / Payer ( fective 2015-Present) Name:Damon Jerez Member ID:[id number] Relation to Subscriber:Self Name:Damon Jerez Subscriber ID:[id number] Payer ID:[id number] Group ID:[id number] Type:COMMERCIAL Address: [place] [id number] Care Teams Aircraft Power Plant Assembler Relationship Specialty Start Date End Date Sultana Bowden MD PCP - General Family Medicine 11/08/20 Perez Vanessa MD Consulting Physician Cardiology 09/09/18 Abel Ramirez MD PhD Cardiology 02/02/20 Martha Bernal, spinneret person Failure Coordinator 02/12/22
--- OUTSIDE RECORDS SUMMARY | 2024-09-08 10:30 | XMS_ITS | Clinical Summary ---
Author Organization [facility] Address [address] [facility] Attn: Epic Prelude ADT JANET FIERRO [address] Care Team Providers Care Scrap Shear Operator Name Role Phone Duglas Sumner MD Primary Care Provider [phone] Social History Tobacco Use Types Packs/Day Years Used Date Smoking Tobacco: Never Assessed Comments Unknown Sex and Gender Information Value Date Recorded Sex Assigned at Not on file Legal Sex Female 3:26 AM OPERATIONS RESEARCH SCIENTIST Gender Identity Not on file [...] 2015 INFLUENZA VACCINE (#1) 2023 Care Teams Scrap Shear Operator Relationship Specialty Start Date End Date Duglas Sumner MD [address] [place] [address] PCP - General 04/15/04
--- OUTSIDE RECORDS SUMMARY | 2024-09-08 10:31 | XMS_ITS | Encounter Summary ---
Author Organization [facility] Address [address] [place] [address] Phone Care Team Providers Care Commercial Internship Name Role Phone Rosalie Hernandez MD Primary Care Provider [phone] Perez Vanessa MD Unavailable [phone] Tashia Chen RN Unavailable [phone] Abel Ramirez MD PhD Unavailable + Sultana Bowden MD Primary Care Provider [phone] Martha Bernal RN Unavailable Unavaila ble Encounter [...] on file Legal Sex Female 6:34 AM MATTRESS INSPECTOR Gender Identity Not on file Sexual Orientation [...] on filedocumented in this encounter Care Teams Commercial Internship Relationship Specialty Start Date End Date Rosalie Hernandez MD PCP - General Family Practice 12/31/17 11/07/20 Sultana Bowden MD [address] [address] PCP - General Family Medicine 11/08/20 Perez Vanessa MD Consulting Physician Cardiology 09/09/18 Tashia Chen RN [address] [address] 02/02/20 02/11/22 Abel Ramirez MD PhD [address] [address] Cardiology 02/02/20 Martha Bernal, tube filler Failure Coordinator 02/12/22 documented as of this encounter
--- OUTSIDE RECORDS SUMMARY | 2024-09-08 10:31 | XMS_ITS | Continuity of Care Document ---
Author Organization [facility] Address [address] [place] [address] Phone Care Team Providers Care Digital Marketing Lead Name Role Phone Tsai OD, Mayur Unavailable [...] Diagnoses Date Provider Providers Copied on Encounter [facility], [address], [place], [place], [id number], [place] tel:[phone] [facility] No Information 0 Tsai OD Mayur. [address] [employer] [address], [address], [place], [address], [place]. tel:[phone] Referring Provider: Mayur Tsai OD Ayana, [address], [place], [place], [facility]. tel:[phone] [facility], [address] [place] [address] [address], [place], [place], [address], tel:[phone] [facility] No Information Dec- 4-201 0 Tsai OD Mayur. [address], [address], [place], [place], [facility], [place]. tel:[phone] Referring Provider: Mayur Tsai OD A, [address] [place] [address] [address], [place], [place], [facility]. tel:[phone] Office/outpat ient Visit, [facility], [address] [place] [address] [address], [place], [place], [address], tel:[phone] [facility] No Information Juwan-0 2-201 0 Krishnasamy Perfecto. [address] [place] [address], [facility], [place]. tel:[phone] Office/outpat ient Visit, [facility], [address] [place] [address] [address], [place], [place], [address], tel:[phone] [facility] No Information 7-201 0 Krishnasamy Perfecto. [address] [place] [address], [facility], [place]. tel:[phone] Referring Provider: Perfecto stahl, [address] [place] [address], [place], [facility]. tel:[phone] [facility], [address] [place] [address] [address], [place], [place], [address], [place] tel:[phone] [facility] No Information Dec-2 8-200 9 Krishnasamy Perfecto. [address] [place] [address], [facility], [place]. tel:[phone] Referring Provider: Perfecto stahl, [address] [place] [address] [address], [place], [address]. tel:[phone] [facility], [address], [place], [place], [address], [place] tel:[phone] [facility] No Information Sep-2 2-200 9 Krishnasamy Perfecto. Psychiatric hospital1 [facility] [place], [place], [facility], [place]. tel:[phone] Referring Provider: Perfecto stahl, [address] [facility] [address], [place], [facility]. tel:[phone] Office/outpat ient Visit, [facility], [address], [place], [place], [address], [place] tel:[phone] [facility] No Information Juwan-1 7-200 9 Krishnasamy Perfecto. [address] [place] [address], [place], [facility], [place]. tel:[phone] Office/outpat ient Visit, [facility], [address], [place], [place], [address], [place] tel:[phone] [facility] No Information Feb-1 1-200 9 Krishnasamy Perfecto. [address] [place] [address], [facility], [place]. tel:[phone] Office/outpat ient Visit, [facility], [address], [place], [place], [address], [place] tel:[phone] [facility] No Information Oct-0 8-200 8 Krishnasamy Perfecto. Psychiatric hospital1 [facility] [address], [place], [facility], [place]. tel:[phone] [facility], [address], [place], [place], [address], [place] tel:[phone] [facility] No Information Sep-1 7-200 8 Krishnasamy Perfecto. [address] [place] [address], [place], [facility], . tel:[phone] [facility], [address] [place], [place] [address] [address], [place], [place], [address], tel:[phone] [facility] No Information Sep-0 3-200 8 Krishnasamy Perfecto. [address] [place] [address] [address], [place], [facility], . tel:[phone] Referring Provider: Perfecto stahl, [address] [place] [address], [place], [facility]. tel:[phone] [facility], [address], [place], [place], [address], tel:[phone] [facility] No Information Aug-2 0-200 8 Krishnasamy Perfecto. [address] [place] [address], [place], [facility], . tel:[phone] Referring Provider: Mayur Piña, [address] [place], [place] [address], [place], [facility]. tel:[phone] Family History Family Member Type Diagnosis Age At Onset No Information Payers Payer name Insurance type Covered republican ID Authorvenancioa lima(s) [place] [id number] [facility] [id number] Social History Type Description Quantity Date Captured [...]
[2024-09-08 10:33] LABS: Albumin Level 4.5 g/dL (3.5-5.1); Anion Gap 9 mmol/L (4-12); Blood Urea Nitrogen 19 mg/dL (7-17); Calcium 9.6 mg/dL (8.4-10.2); Carbon Dioxide 28 mmol/L (22-30); Chloride 104 mmol/L (98-107); Estimated Glomerular Filt Rate 56; Glucose 93 mg/dL (65-110); Phosphorus 3.9 mg/dL (2.5-4.5); Sodium 141 mmol/L (137-145)
[2024-09-08 10:37] LABS: Creatinine Urine 95.7 mg/dL; Total Protein Urine Random 9 mg/dL; Ur Ttl Prot Creatinine Ratio 0.09 mg/mg (0-0.20)
[2024-09-08 10:56] LABS: Parathyroid Intact 63.6 pg/mL (14.5-75.2)
== END 2024-09-08 09:42 | disposition home or self-care (01) ==
PROVIDERS: PCP Family Medicine; Visit Provider Internal Medicine Nephrology
DX: N18.4 Chronic kidney disease, stage 4 (severe) (principal)
CPT/HCPCS: 36415; 80069; 82570; 83970; 84156; 85027

== ENCOUNTER 2025-03-07 10:19 | Outpatient (CLI) | payer MEDICARE, SELFPAY ==
[2025-03-07 10:41] LABS: Hematocrit 34.1 % (37.0-47.0); Hemoglobin 11.6 g/dL (12.0-15.0); Mean Corpuscular HGB Conc 34.0 g/dl (32-36); Mean Corpuscular Hemoglobin 29.8 pg (26-34); Mean Corpuscular Volume 87.7 fl (80-100); Platelet Count Result 226 k/mm3 (150-375); Red Blood Count 3.89 M/mm3 (4.2-5.4); White Blood Count 6.6 K/mm3 (4.5-10.0)
[2025-03-07 10:57] LABS: Albumin Level 4.6 g/dL (3.5-5.1); Anion Gap 6 mmol/L (4-12); Blood Urea Nitrogen 22 mg/dL (7-17); Calcium 9.5 mg/dL (8.4-10.2); Carbon Dioxide 26 mmol/L (22-30); Chloride 106 mmol/L (98-107); Estimated Glomerular Filt Rate 52; Glucose 103 mg/dL (65-110); Potassium 3.8 mmol/L (3.4-5.0); Sodium 138 mmol/L (137-145)
[2025-03-07 10:59] LABS: Total Protein Urine Random 9 mg/dL; Ur Ttl Prot Creatinine Ratio 0.04 mg/mg (0-0.20)
[2025-03-07 11:09] LABS: Parathyroid Intact 67.5 pg/mL (14.5-75.2)
--- OUTSIDE RECORDS SUMMARY | 2025-03-07 11:11 | XMS_ITS | Encounter Summary ---
Author Organization [employer] Address 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
--- OUTSIDE RECORDS SUMMARY | 2025-03-07 11:11 | XMS_ITS | Encounter Summary ---
Author Organization [employer] Address [address] [place] [address] Care Team Providers Care Plant Attendant Name Role Phone Duglas Sumner MD Primary Care Provider [phone] Encounter Details Date Type Department Care Team (Late st Contact Info) Description 03/04/2007 Outpatient Historical HIS MRI DEPT David Hernández [place] [address] [address] Chronic Mastoiditis (Primary Dx) Social History Tobacco Use Types Packs/Day Years Used Date Smoking Tobacco: Never Assessed Comments Unknown Sex and Gender Information Value Date Recorded Sex Assigned at Not on file Legal Sex Female 3:26 AM PRESS LOADER Gender Identity Not on file Sexual Orientation Not on file documented as of this encounter Plan of Treatment Not on file documented as of this encounter Visit Diagnoses Diagnosis Chronic mastoiditis- Primary documented in this encounter Care Teams Plant Attendant Relationship Specialty Start Date End Date Duglas Sumner MD [address] [place] [address] PCP - General 04/15/04 documented as of this encounter
--- OUTSIDE RECORDS SUMMARY | 2025-03-07 11:11 | XMS_ITS | Encounter Summary ---
Author Organization [facility] Address [address] [place] [address] Phone Care Team Providers Care Gaming Dealer Name Role Phone Rosalie Hernandez MD Primary Care Provider [phone] Perez Vanessa MD Unavailable [phone] Tashia Chen RN Unavailable Abel Ramirez MD PhD Unavailable + Sultana Bowden MD Primary Care Provider [phone] Martha Bernal RN Unavailable Unavaila Elisha Xiong Unavailable Unavailable Encounter Details Date Type Department Care Team [...] on file Legal Sex Female 6:34 AM INSPECTOR WREATH Gender Identity Not on file Sexual Orientation [...] on filedocumented in this encounter Care Teams Gaming Dealer Relationship Specialty Start Date End Date Rosalie Hernandez MD PCP - General Family Practice 12/31/17 11/07/20 Sultana Bowden MD [address] [address] PCP - General Family Medicine 11/08/20 Perez Vanessa MD Consulting Physician Cardiology 09/09/18 Tashia Chen, RN [address] [address] 02/02/20 02/11/22 Abel Ramirez MD PhD [address] [address] Cardiology 02/02/20 Martha Bernal, operations representative Failure Coordinator 02/12/22 Elisha Owens Primary Carpenter Refrigerator 12/22/24 documented as of this encounter
--- OUTSIDE RECORDS SUMMARY | 2025-03-07 11:11 | XMS_ITS | Clinical Summary ---
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
--- OUTSIDE RECORDS SUMMARY | 2025-03-07 11:11 | XMS_ITS | Clinical Summary ---
Author Organization [facility] Address [facility] [place] [address] Care Team Providers Care Language Therapist Name Role Phone Sultana Bowden MD Primary Care Provider [phone] Medications No known medications Social History Tobacco Use Types Packs/Day Years Used Date Smoking Tobacco: Never Smokeless Tobacco: Never Tobacco Cessation:Counseling Given: Not Answered Comments Unknown Sex and Gender Information Value Date Recorded Sex Assigned at Female 07/22/2024 1:11 PM CDT Legal Sex Female 12:59 PM CDT Gender Identity Not on file Sexual Orientation Not on file Last Filed Vital Signs Vital Sign Reading Time Taken Comments Blood Pressure 140/45 07/22/2024 3:17 PM CDT Pulse 81 07/22/2024 3:17 PM CDT Temperature 36.3 C (97.3 F) 07/22/2024 3:17 PM CDT Respiratory Rate 16 07/22/2024 3:17 PM CDT Oxygen Saturation 100% 07/22/2024 3:17 PM CDT Inhaled Oxygen Concentration - - Weight 58.3 kg (128 lb 8.5 oz) 07/22/2024 1:12 P M CDT Height 157.5 cm (5' 2) 07/22/2024 1:12 PM CDT Body Mass Index 23.51 07/22/2024 1:12 PM CDT Plan of Treatment Health Maintenance Due Date Last Done Comments Zoster Vaccines (1 of 2) 1990 Annual Medicare Wellness Visit 2005 Dexa Scan (General) 2005 DTaP, Tdap and Td Vaccines (1 - Tdap) 09/17/2016 09/16/2016, 04/06/2006 COVID-19 Vaccine ( season) 2024 05/11/2024, 01/19/2023, 12/30/2021, Additional history exists Influenza Adult (#1) 2025 01/08/2024, 01/05/2023, 12/30/2021, Additional history exists Pneumococcal Vaccine: 50+ Years Completed 01/04/2018, 06/28/2014, 04/06/2013 RSV Immunization or 60+ Years Completed 01/12/2023 Hepatitis A Vaccines Aged Out No long er eligible based on patient's age to complete this topic Meningococcal B Vaccine Aged Out No l onger eligible based on patient's age to complete this topic Meningococcal Vaccine Aged Out No maryann jermaine eligible based on patient's age to complete this topic RSV Immunizations Under 20 Months Aged Out No longer eligible based on patient's age to complete this topic Insurance MEDICARE [facility] Care Teams Language Therapist Relationship Specialty Start Date End Date Sultana Bowden MD [address] [place] [address] PCP - General FAMILY PRACTICE 07/22/24
--- OUTSIDE RECORDS SUMMARY | 2025-03-07 11:11 | XMS_ITS | Encounter Summary ---
Author Organization [facility] Address [address] [place] [address] Care Team Providers Care Forest Science Professor Name Role Phone Duglas Sumner Primary Care Provider [phone] Eden Corea MD Primary Care Provider Rosalie Hernandez MD Primary Care Provider + [phone] Perez Vanessa MD Unavailable [phone] Tashia Chen RN Unavailable Abel Ramirez MD PhD Unavailable + Sultana Bowden MD Primary Care Provider [phone] Martha Bernal RN Unavailable Unavaila Elisha Xiong Unavailable Unavailable Encounter Details Date Type Department Care Team (Late st Contact Info) Description 07/04/2017 Orders Only [facility] Health Information Management [address] [place] [address] Scanning, Provider Social History Tobacco Use Types Packs/Day Years Used Date Smoking Tobacco: Never Smokeless Tobacco: Never Alcohol Use Standard Drinks/Week Comments No 0 (1 standard drink = 0.6 oz pur e alcohol) Comments Unknown Sex and Gender Information Value Date Recorded Sex Assigned at Not on file Legal Sex Female 6:34 AM PLUGGER MAN Gender Identity Not on file Sexual Orientation Not on file documented as of this encounter Plan of Treatment Not on file documented as of this encounter Procedures Procedure Name Priority Date/Time Associated Diagnosis Comments CARDIOLOGY DOCUMENT SCAN 07/04/2017 documented in this encounter Results * Cardiology Document Scan (07/04/2017) Anatomical Region Laterality Modality Other us Provider Scanning CV CARDIAC SERVICES PROCEDURES Final Result documented in this encounter Visit Diagnoses Not on filedocumented in this encounter Care Teams Forest Science Professor Relationship Specialty Start Date End Date Duglas Sumner [address] [place] [place] [address] PCP - General 09/12/15 08/05/17 Eden Corea MD [address] [facility] [place] [address] PCP - General Family Practice 08/06/17 12/30/17 Rosalie Hernandez MD [address] [facility] [place] [address] PCP - General Family Practice 12/31/17 11/07/20 Sultana Bowden MD [address] [address] PCP - General Family Medicine 11/08/20 Perez Vanessa MD [address] [facility] [place] [address] Consulting Physician Cardiology 09/09/18 Tashia Chen RN [address] [facility] [address] [place] [address] 02/02/20 02/11/22 Abel Ramirez MD PhD [address] [facility] [address] [place] [address] Cardiology 02/02/20 Martha Bernal, experimental flight test mechanic Failure Coordinator 02/12/22 Elisha Owens Primary Sap Bods Developer 12/22/24 documented as of this encounter
--- OUTSIDE RECORDS SUMMARY | 2025-03-07 11:11 | XMS_ITS | Encounter Summary ---
Author Organization [facility] Address [address] [place] [address] Care Team Providers Care Official Greeter Name Role Phone Duglas Sumner Primary Care Provider [phone] Eden Corea MD Primary Care Provider Rosalie Hernandez MD Primary Care Provider + [phone] Perez Vanessa MD Unavailable [phone] Tashia Chen RN Unavailable Abel Ramirez MD PhD Unavailable + Sultana Bowden MD Primary Care Provider [phone] Martha Bernal RN Unavailable Unavaila Elisha Xiong Unavailable Unavailable Encounter Details Date Type Department Care Team (Late st Contact Info) Description 07/09/2017 Orders Only [facility] Health Information Management [address] [place] [address] Scanning, Provider Social History Tobacco Use Types Packs/Day Years Used Date Smoking Tobacco: Never Smokeless Tobacco: Never Alcohol Use Standard Drinks/Week Comments No 0 (1 standard drink = 0.6 oz pur e alcohol) Comments Unknown Sex and Gender Information Value Date Recorded Sex Assigned at Not on file Legal Sex Female 6: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 CONTENT DESIGNER Gender Identity Not on file Sexual Orientation Not on file documented as of this encounter Plan of Treatment Not on file documented as of this encounter Procedures Procedure Name Priority Date/Time Associated Diagnosis Comments SCAN - LABS 07/09/2017 documented in this encounter Results * SCAN - LABS (07/09/2017) us Provider Scanning Final Result documented in this encounter Visit Diagnoses Not on filedocumented in this encounter Care Teams Official Greeter Relationship Specialty Start Date End Date Duglas Sumner [address] [place] [address] PCP - General 09/12/15 08/05/17 Eden Corea MD [address] [facility] [place] [address] PCP - General Family Practice 08/06/17 12/30/17 Rosalie Hernandez MD [address] [place] [address] PCP - General Family Practice 12/31/17 11/07/20 Sultana Bowden MD [address] [address] PCP - General Family Medicine 11/08/20 Perez Vanessa MD [address] [facility] [address] Consulting Physician Cardiology 09/09/18 Tashia Chen RN [address] [address] 02/02/20 02/11/22 Abel Ramirez MD PhD [address] [address] Cardiology 02/02/20 Martha Bernal, unindentured apprentice Failure Coordinator 02/12/22 Elisha Owens Primary Supervisor Specialty Plant 12/22/24 documented as of this encounter
--- OUTSIDE RECORDS SUMMARY | 2025-03-07 11:11 | XMS_ITS | Encounter Summary ---
Author Organization [employer] Address 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
--- OUTSIDE RECORDS SUMMARY | 2025-03-07 11:11 | XMS_ITS | Clinical Summary ---
Author Organization [facility] [address] Address [address] [place] [address] Care Team Providers Care Artificial Plastic Eye Maker Name Role Phone Perez Vanessa MD Unavailable [phone] Abel Ramirez MD PhD Unavailable + Sultana Bowden MD Primary Care Provider [phone] Martha Bernal RN Unavailable Unavaila Elisha Xiong Unavailable Unavailable Allergies No known active allergies Medications Lumigan [...] mg total) by mouth daily 4 Active carvediloL (COREG) 6.25 mg tablet TAKE 1 TABLET(6.25 MG) BY MOUTH TWICE DAILY WITH MEALS 180 tablet 3 5 Active digoxin (LANOXIN) 250 mcg (0.25 mg) tablet TAKE 1 TABLET(250 MCG) BY MOUTH DAILY 90 tablet 3 5 Active sacubitriL-vals antwon (ENTRESTO) 24-26 mg tablet TAKE 1 TABLET BY MOUTH TWICE DAILY 180 tablet 3 5 Active Xarelto 20 mg tablet TAKE 1 TABLET(20 MG) BY MOUTH DAILY 90 tablet 3 5 Active Active Problems Problem Noted Date Diagnosed Date Chronic combined systolic and diastolic heart fa ilure 11/22/2018 Essential hypertension 10/18/2018 Hyperlipidemia 10/18/2018 Heart murmur 10/18/2018 Non-rheumatic mitral regurgitation 08/24/2018 Persistent atrial fibrillation 08/06/2017 LBBB (left bundle branch block) 11/04/2016 Encounters Date Type Department Care Team Description 12/06/2024 9:15 AM CDT Office Visit [facility] Cardiology [address] [place] [address] Perez Vanessa MD Persistent atrial fibrillation (HCC) (Primary Dx); LBBB (left bundle branch block) from Last 3 Months Surgical History Surgery Date Site/Laterality Comments CARDIOVERSION [...] on file Legal Sex Female 6:34 AM INGOT SUPERVISOR Gender Identity Not on file Sexual Orientation Not on file Last Filed Vital Signs Vital Sign Reading Time Taken Comments Blood Pressure 120/68 12/06/2024 9:11 AM CDT Pulse 66 12/06/2024 9:11 AM CDT Temperature 36.4 C (97.6 F) 08/08/2020 8:25 AM CDT Respiratory Rate 16 08/06/2017 1:49 PM CDT Oxygen Saturation 99% 12/06/2024 9:11 AM CDT Inhaled Oxygen Concentration - - Weight 59.9 kg (132 lb 1.6 oz) 12/06/2024 9:11 A M CDT Height 157.5 cm (5' 2) 12/06/2024 9:11 AM CDT Body Mass Index 24.16 12/06/2024 9:11 AM CDT Plan of Treatment Health Maintenance Due Date Last Done Comments Depression Screening 1940 Fall Risk Assessment 1940 Osteoporosis Screening-Bone Density Scan 1940 Hepatitis B Screening 1958 Zoster Vaccine (1 of 2) 1990 Well Visit 65+ 2005 DTaP/Tdap/Td Vaccine (1 - Tdap) 09/17/2016 7, 04/06/2006 Influenza Vaccine (#1) 2024 8, 01/04/2017, 12/24/2015, Additional history exists Pneumococcal vaccine 65+ Completed 018, 06/28/2014, 04/06/2013 Insurance COMMERCIAL GENERIC MEDICARE MEDICARE COMMERCIAL GENERIC MEDICARE COMMERCIAL GENERIC Care Teams Artificial Plastic Eye Maker Relationship Specialty Start Date End Date Sultana Bowden MD PCP - General Family Medicine 11/08/20 Perez Vanessa MD Consulting Physician Cardiology 09/09/18 Abel Ramirez MD PhD Cardiology 02/02/20 Martha Bernal, non profit director Failure Coordinator 02/12/22 Elisha Owens Primary Back Hoe Operator 12/22/24
--- OUTSIDE RECORDS SUMMARY | 2025-03-07 11:11 | XMS_ITS | Encounter Summary ---
Author Organization [facility] Address [address] [place] [address] Care Team Providers Care Saturator Tender Name Role Phone Duglas Sumner MD Primary Care Provider [phone] Encounter Details Date Type Department Care Team (Late st Contact Info) Description 08/19/2005 Outpatient Historical [facility] DEPT David Hernán[place] [id number] [id number] Cholesteatoma of Middle Ear (Primary Dx) Social History Tobacco Use Types Packs/Day Years Used Date Smoking Tobacco: Never Assessed Comments Unknown Sex and Gender Information Value Date Recorded Sex Assigned at Not on file Legal Sex Female 3:26 AM MAINTENANCE APPRENTICE Gender Identity Not on file Sexual Orientation Not on file documented as of this encounter Plan of Treatment Not on file documented as of this encounter Visit Diagnoses Diagnosis Cholesteatoma of middle ear- Primary documented in this encounter Care Teams Saturator Tender Relationship Specialty Start Date End Date Duglas Sumner MD [address] [place] [id number] PCP - General 04/15/04 documented as of this encounter
== END 2025-03-07 10:20 | disposition home or self-care (01) ==
LOC: ANHLAB 10:21
PROVIDERS: PCP Family Medicine; Visit Provider Internal Medicine Nephrology
DX: E21.1 Secondary hyperparathyroidism, not elsewhere classified (principal); N18.4 Chronic kidney disease, stage 4 (severe); N18.30 Chronic kidney disease, stage 3 unspecified
CPT/HCPCS: 36415; 80069; 82570; 83970; 84156; 85027